=== PATIENT | female | born 1965 | race Caucasian/White ===

== ENCOUNTER 2018-10-17 16:28 | Inpatient (IN) ==
--- NOTE | 2018-10-17 18:02 | Diag Imaging Result Doc PS360 ---
EXAM: KUB ABDOMEN INDICATION: constipation pain TECHNIQUE: One view COMPARISON: 07/25/2018 FINDINGS: There are multiple gas-distended loops of small bowel throughout the abdomen. Small bowel obstruction cannot be excluded. No definite large volume free abdominal gas can be identified given the limitations of a supine radiograph. There is no evidence of organomegaly. IMPRESSION: Gas-distended loops of small bowel as described. Small bowel obstruction cannot be excluded. Electronically signed by Frandy Gallegos 10/17/2018 6:01 PM
[2018-10-17] MEDS ORDERED: SODIUM CHLORIDE 0.9% INJ ONE (18:15)
[2018-10-17] MEDS ORDERED: ZOFRAN IV ONE (18:15)
[2018-10-17] MEDS ORDERED: PEPCID IV ONE (18:15)
[2018-10-17] MEDS ORDERED: NS 1,000 ML IV ONE (18:15)
[2018-10-17] MEDS ORDERED: DILAUDID IV ONE ×2 (18:15→21:21)
--- NOTE | 2018-10-17 18:28 | PROVIDER DOCUMENTATION ---
HPI-Abdominal Pain/GI Problem - General Chief Complaint: Constipation Stated Complaint: POST OP COMPLAINT Time Seen by Provider: 10/17/18 18:15 Source: patient Allergies/Adverse Reactions: Patient Allergies Allergy/AdvReac Type Severity Reaction Status Date / Time No Known Allergies Allergy Verified 07/21/18 10:30 Home Medications: Home Medication List Medication Instructions Recorded Confirmed Last Taken Type NK [No Home Medications] 10/17/18 10/17/18 Unknown History - History of Present Illness-ABD Nature of Presenting Problems: History of SBO a few months ago due to adhesions, c/o 2-3 day history of increasing, severe, crampy abdominal pain and vomit with vomit becoming feculent this evening. No flatus in several days. No fever. States this feels the same as when she had surgery for adhesionolysis. Abdominal Pain Onset Location: reports: generalized abdomen Pain Radiation: reports: no radiation Quality of Pain: reports: cramping, stabbing Severity in ED: reports: severe Onset/Duration: reports: 3 days ago Timing: reports: still present, constant, getting worse Activities at Onset: reports: none Exposure to sick contacts?: No Modifying Factors: improves with: immobilization, vomiting. worse with: movement, palpation Associated Symptoms: reports: constipation, nausea, vomiting Last BM: 3 days ago Dark Stools Present?: reports: none noticed Rectal Pain: reports: none Emesis Description: reports: other (feculent) Bruising or Bleeding Gums?: No Similar Symptoms Previously?: Yes (SBO (can't remember name of trista)) Recently seen or treated by another doctor?: No Review of Systems - Adult - REVIEW OF SYSTEMS - ADULT Constitutional: reports: no symptoms reported Eyes: reports: no symptoms reported Ears, Nose, Mouth & Throat: reports: no symptoms reported Cardiovascular: reports: no symptoms reported Respiratory: reports: no symptoms reported Gastrointestinal: reports: see HPI, abdominal pain, constipation, nausea, poor appetite, vomiting. denies: hematemesis, diarrhea, difficulty swallowing, frequent heartburn, rectal bleeding Genitourinary: reports: no symptoms reported Musculoskeletal: reports: no symptoms reported Integumentary: reports: no symptoms reported Neurological: reports: no symptoms reported Psychiatric: reports: no symptoms reported Endocrine: reports: no symptoms reported Hematologic/Lymphatic: reports: no symptoms reported Allergic/Immunologic: reports: no symptoms reported All Other Systems: Reviewed and Negative Past History - Adult - PAST MEDICAL HISTORY-ADULT Review of Records: reports: Old Records Reviewed, Nursing Assessment Review, Medications Reviewed, Social history reviewed & non-contributory. Major Childhood Illnesses: reports: denies history Cardiovascular: reports: denies history Respiratory: reports: denies history Gastrointestinal: reports: obstruction Obstetrical/Gynecological: reports: denies history Genitourinary: reports: denies history Musculoskeletal: reports: chronic pain, neck/back injury Neurological: reports: CVA (multi brain bleeds), headaches/migraines Endocrine/Immune: reports: denies history Other Conditions: reports: denies history - PRIOR SURGERIES/PROCEDURES Surgical/Procedure History: reports: EGD, bowel surgery, back/neck - IMMUNIZATION STATUS Childhood Immunizations: See Nurse Assessment Flu Vaccine: See Nurse Assessment - FAMILY HISTORY Family History: reviewed, not pertinent - SOCIAL HISTORY Smoking: cigarettes, less than 1 pack/day Provider spent 3-5 mins advising pt. on dangers of tobacco.: Discussed manners to quit use, and f/u contacts for add'l counseling. Substance Use: none/never Alcohol Use Frequency: occasionally Living Situation: family Physical Exam-General - PHYSICAL EXAM-ADULT Initial Vital Signs Reviewed: Yes (Tachycardic, otherwise stable) - CONSTITUTIONAL General Appearance: alert, mild distress, cachetic, thin, anxious, other ( holdiong vomit bag) - EYES Eyes: PERRL/EOMI, pink conjunctivae - HEAD, EARS, NOSE, MOUTH & THROAT HENMT: normocephalic/atraumatic, normal ENT inspection, TMs normal, pharynx normal, other (dry mucous membranes) - NECK Neck: non-tender, full range of motion, supple - RESPIRATORY Respiratory: chest non-tender, lungs clear, normal breath sounds, no pleuratic chest pain, no respiratory distress, no accessory muscle use - CARDIOVASCULAR Cardiovascular: normal peripheral pulses, regular rate, rhythm, no edema, no gallop, no JVD, no murmur, tachycardia - GASTROINTESTINAL (ABDOMEN) Abdominal Exam: no organomegaly, no pulsatile mass, abnormal bowel sounds ( hyperactive), distended, guarding, rebound, tenderness - MUSCULOSKELETAL Back Exam: normal inspection, no CVA tenderness, no vertebral tenderness Extremity: normal range of motion, non-tender, normal gait, normal inspection - SKIN Integumentary: normal color, normal turgor, warm/dry Progress - PLAN OF CARE/RESULTS Progress/Plan/Lab Results: Vital Signs - 8 hr 10/17/18 17:08 Temperature 98.3 F Pulse Rate 113 H Respiratory Rate 18 Blood Pressure 109/77 O2 Sat by Pulse Oximetry 99 Orders Category Date Time Status Lezama Cath Insertion ORDERED Care 10/17/18 18:13 Active NG/OG/Feeding Tube Insertion ORDERED Care 10/17/18 18:[address] ABD/PELVIS W/IV CONT ONLY [CT] Stat Exams 10/17/18 18:15 Ordered KUB ABDOMEN [RAD] Stat Exams 10/17/18 17:16 Completed BLOOD CULTURE [BLDCUL] Stat Lab 10/17/18 18:14 Ordered CBC WITH ELECTRONIC DIFF [HEME] Stat Lab 10/17/18 18:14 Uncollected COMPREHENSIVE METABOLIC PANEL [CHEM] Stat Lab 10/17/18 18:14 Uncollected LACTATE, PLASMA [CHEM] Stat Lab 10/17/18 18:14 Uncollected MAGNESIUM [CHEM] Stat Lab 10/17/18 18:14 Uncollected PROTIME WITH INR [COAG] Stat Lab 10/17/18 18:14 Uncollected TROPONIN T Stat Lab 10/17/18 18:14 Uncollected TYPE & SCREEN [BBK] Stat Lab 10/17/18 18:[address] W/POSS RFLX CULT [URINALYSIS] Stat Lab 10/17/18 18:14 Uncollected 0.9% Sodium Chloride Inj [Ns] 1,000 ml Med 10/17/18 18:15 Active IV 999 mls/hr Famotidine [Pepcid] Med 10/17/18 18:15 Discontinued 20 mg IV NOW ONE Hydromorphone [Dilaudid] Med 10/17/18 18:15 Discontinued 0.5 mg IV NOW ONE Ondansetron [Zofran] Med 10/17/18 18:15 Discontinued 4 mg IV NOW ONE Sodium Chloride 0.9% Med 10/17/18 18:15 Discontinued 5 - 10 ml INJ NOW ONE EKG [EKG] Stat Ther 10/17/18 18:14 Ordered Pt signed out to me by Dr. Tsai pending CT, pt has SBO, pt seen by Dr. Callaway, will admit to hospitalist and surgery to consult, NG placed Result Diagrams: 10/17/18 18:30 10/17/18 18:30 - EKG 1 Time of EKG reading by physician:: 18:46 EKG Read and Signed by:: Frantz Tsai EKG Interpretation (*Must complete 3 of following elements*): Abnormal Rate: 79 Rhythm: NSR with arryhthmia QRS: normal MA Interval: normal ST Wave: non-specific ST changes - CHANGE OF SHIFT REPORT (ED Provider) Report Given and Care Transferred to:: Dr. Pires Time of Transfer: 19:00 Items Pending: Labs, CT/MRI Results, Physician Consult/Arrival (surgeon) Departure - Departure Date of Disposition Decision: 10/17/18 Time of Disposition Decision: 21:23 DIAGNOSIS: SBO (small bowel obstruction) Disposition: [facility] 02 Certified Medical Emergency: Emergent Condition: Stable Referrals and Follow-Ups: None,PCP [Primary Care Provider] - Work Excuses: Return to School/Parent Work - Critical Care Note This patient required my direct & personal management of CC.: No Attestation - Physician/ ROCIO Attestation Patient care was provided by Advanced Practice Provider:: No The physician spent face to face time with patient:: Yes Advanced Practice Provider documentation review:: Supervising physician onsite and consulted in the evaluation and care of this patient. The physician did have a face to face encounter with the patient.
[2018-10-17] MEDS ORDERED: ZOSYN 3.375 GM in NS 50 ML IV ONE (18:30)
[2018-10-17 18:50] LABS: BASO# 0.01 X1000 (0.0-0.2); BASO% 0.2 % (0.0-0.8); EOS# 0.03 X1000 (0.0-0.7); EOS% 0.5 % (0.0-10.0); HEMATOCRIT 43.2 % (37.0-47.0); HEMOGLOBIN 14.6 g/dL (12.0-16.0); IMM GRAN# 0.01 X1000 (0.0-0.04); IMM GRAN% 0.2 % (0.0-0.5); LYMPH# 1.02 X1000 (1.2-3.4); MCH 27.8 PG (27-31); MCHC 33.8 g/dL (33-37); MCV 82.1 FL (81-99); MONO# 0.86 X1000 (0.11-0.59); MONO% 15.2 % (1.7-9.3); MPV 9.7 FL (7.4-10.4); NEUT# 3.73 X1000 (1.4-6.5); NEUT% 65.9 % (42.2-75.2); PLT 312 X1000 (130-400); RBC 5.26 XMIL (4.2-5.4); RDW 14.1 % (11.5-14.5); WBC 5.66 X1000 (4.8-10.8)
[2018-10-17 19:01] LABS: INR 0.89; PROTIME 12.5 Seconds (11.0-16.0)
[2018-10-17 19:12] LABS: AGAP 17; ALKALINE PHOSPHATASE 102 U/L (32-104); BUN 18 mg/dL (8-22); CALCIUM 9.5 mg/dL (8.8-10.2); CHLORIDE 93 mmol/L (98-107); COSMO 283; CREATININE 0.9 mg/dL (0.5-0.9); ESTIMATED GFR > 60; GLUCOSE 99 mg/dL (70-104); GOT 23 U/L (10-30); GPT 22 U/L (10-36); MAGNESIUM 2.1 mg/dL (1.5-2.7); POTASSIUM 3.5 mmol/L (3.5-5.1); SODIUM 141 mmol/L (136-145); TCO2 31 mmol/L (25-35); TOTAL PROTEIN 7.1 g/dL (6.3-8.3)
--- NOTE | 2018-10-17 20:10 | Diag Imaging Result Doc PS360 ---
EXAM: CT ABD/PELVIS W/IV CONT ONLY INDICATION: SBO TECHNIQUE: This exam was performed using automated exposure control, adjustment of mA or kV according to patient size, and/or use of iterative reconstruction technique. COMPARISON: 07/21/2018 FINDINGS: There are a couple of tiny hepatic hypodensities that probably represent miniscule cysts, stable. The liver is unremarkable, otherwise. The gallbladder, spleen, pancreas, adrenal glands, and kidneys are essentially unremarkable. There is a Lezama catheter in the urinary bladder and the bladder is nondistended. It is unremarkable, otherwise. The reproductive tract is grossly unremarkable as imaged. There are multiple markedly distended loops of small bowel containing air-fluid levels. The distal small bowel is collapsed. This is consistent with a high-grade small bowel obstruction. The exact transition point is not clearly identified but is probably in the right lower quadrant. The remainder of the GI tract is grossly unremarkable. There is a small amount of free abdominal fluid layering in the pelvis. No free abdominal gas is identified. IMPRESSION: High-grade small bowel obstruction as detailed above. Electronically signed by Frandy Gallegos 10/17/2018 8:08 PM
[2018-10-17 21:00] LABS: BILIRUBIN URINE NEGATIVE (NEGATIVE); BLOOD URINE NEGATIVE (NEGATIVE); CLARITY CLEAR (CLEAR); COLOR YELLOW; GLUCOSE URINE NEGATIVE (NEGATIVE); KETONE URINE 3+(Large) mg/dL (NEGATIVE); LEUKOCYTES URINE NEGATIVE (NEGATIVE); NITRITE URINE NEGATIVE (NEGATIVE); PROTEIN URINE 1+(30 mg/dL) mg/dL (NEGATIVE); UROBILINOGEN URINE 1 mg/dL
[2018-10-17 21:01] LABS: URINE BACTERIA 1+ /HFP; URINE CAST NONE SEEN /LPF; URINE CRYSTAL NONE SEEN /HPF; URINE EPITHELIAL CELLS <10 /HPF (<10); URINE SOURCE CATH; URINE WBC <10 /HPF (<10); URINE YEAST NONE SEEN /HPF
--- NOTE | 2018-10-18 00:26 | EKG Report ---
Test Performed on : 10/17/2018 6:37:49 PM Test Reason : vomiting Blood Pressure : / mmHG Vent. Rate : 079 BPM Atrial Rate : 079 BPM P-R Int : 118 ms QRS Dur : 076 ms QT Int : 380 ms P-R-T Axes : 000 062 078 degrees QTc Int : 435 ms Normal sinus rhythm. with sinus arrhythmia. Nonspecific ST and T wave abnormality Abnormal ECG When compared with ECG of 15-FEB-2016 05:32, Nonspecific T wave abnormality now evident in Lateral leads Unconfirmed Result
--- NOTE | 2018-10-18 01:26 | GENERAL SURGERY CONSULTATION ---
DATE: 10/17/2018 HPI: A 52-year-old female who had a exploratory laparotomy by Dr. Braun back in July. She was found to have occult appendicitis at that time and underwent appendectomy. She recovered said she had not felt great really since that surgery but over the last several days she has developed abdominal distention, vomiting, decrease in her bowel function and presented to [place] where CT scan showed a bowel obstruction. NG tube was placed along with Lezama catheter. MEDICAL HISTORY: 1. History of small bowel obstruction. 2. Polysubstance dependence. 3. Nicotine dependence. 4. Renal insufficiency. SURGICAL HISTORY: Exploratory laparotomy, appendectomy. SOCIAL HISTORY: Apparent history of drugs, tobacco. FAMILY HISTORY: Reviewed and noncontributory. REVIEW OF SYSTEMS: Ten point negative. PHYSICAL EXAM: Temperature is 98.3 degrees, pulse is 60, blood pressure 137/121, oxygen saturation 99%.General: She is alert, no acute distress. HEENT: Is nasogastric tube place. No cervical mass. Cardiovascular: Normal rate. Pulmonary: No increased work of breathing. Abdomen: Soft, mildly distended. No tenderness, no peritonitis . Integument: Warm, dry. Psychiatric: Appropriate affect. Neurologic: No gross deficits. Musculoskeletal: She is quite cachectic . Lymphatic: No inguinal adenopathy. LAB: White count 5, hematocrit 43, platelets 312,000, creatinine is 0.9, mild elevation of bilirubin, otherwise AST, ALT, alkaline phosphatase normal and troponin is normal, lipase normal. Urinalysis has 3+ ketones. CT scan was reviewed shows bowel obstruction with transition point distal small bowel. ASSESSMENT AND PLAN: 52-year-old female with a small-bowel obstruction. I do not see any evidence perforation, she has no peritonitis on exam, she has got nasogastric tube in place. Will continue nasogastric decompression admitted her to the hospitalist as an observe and will engage Dr. Braun tomorrow. cc: Desmond Callaway MD
[2018-10-18] MEDS: NS 1,000 ML IV SCH ×2 (02:22→13:32)
[2018-10-18] MEDS: DILAUDID IV PRN ×6 (02:22→21:10)
[2018-10-18] MEDS ORDERED: FLU VACCINE IM ONE (02:26)
[2018-10-18] MEDS ORDERED: PNEUMOVAX 23 IM ONE (02:27)
[2018-10-18 04:21] LABS: UR BARBITUATES QUAL NONE DETECTED (NONE DETECT); UR BENZODIAZEPIN QUAL NONE DETECTED (NONE DETECT); UR COCAINE QUAL PRESUMPTIVE POSITIVE (NONE DETECT); UR METHADONE QUAL NONE DETECTED (NONE DETECT); UR METHAMPHETAMINE QUAL PRESUMPTIVE POSITIVE (NONE DETECT); UR OPIATES QUAL PRESUMPTIVE POSITIVE (NONE DETECT); UR OXYCODONE QUAL NONE DETECTED (NONE DETECT)
[2018-10-18 04:22] LABS: UR CANNABINOIDS QUAL NONE DETECTED (NONE DETECT); UR PCP QUAL NONE DETECTED (NONE DETECT); UR PROPOXYPHENE QUAL NONE DETECTED (NONE DETECT); UR TCA QUAL NONE DETECTED (NONE DETECT)
[2018-10-18 04:27] LABS: UR AMPHETAMINES QUAL PRESUMPTIVE POSITIVE (NONE DETECT)
[2018-10-18] MEDS: NICODERM PATCH TD SCH (06:03)
[2018-10-18] MEDS: PROTONIX IV SCH (06:03)
--- NOTE | 2018-10-18 06:52 | Diag Imaging Result Doc PS360 ---
CHEST-1 VIEW - 10/18/2018 INDICATION: Cough, poss. surgical patient COMPARISON: 07/22/2018 FINDINGS: There is a nasogastric tube with the tip in the distal esophagus. Recommend advancing by about 12 cm. The lungs are clear. Heart size is normal. No pneumothorax or pleural effusion. IMPRESSION: Nasogastric tube with tip in the distal esophagus. Recommend advancing by about 12 cm. Electronically signed by Ron Salomon 10/18/2018 6:49 AM
--- NOTE | 2018-10-18 07:14 | GENERAL SURGERY PROGRESS NOTE ---
DATE: 10/18/2018 SUBJECTIVE: She is still having some colicky pains. No fevers. No tachycardia. OBJECTIVE: Blood pressure 119/71. General: She has an NG tube in place with minimal output. Abdomen is less distended and soft. There is palpable peristalsis. Cardiovascular: Normal rate. No new labs yet this morning. ASSESSMENT AND PLAN: A 52 old female with bowel obstruction. Her UDS was positive for amphetamines, cocaine, and opiates. We will continue nasogastric tube decompression. We will encourage her to be out of bed. She will need IV hydration, electrolyte repletion with goal potassium greater than 4, magnesium greater than 2. We will continue to follow along. cc: Desmond Callaway MD
[2018-10-18 07:21] LABS: BASO# 0.05 X1000 (0.0-0.2); EOS# 0.07 X1000 (0.0-0.7); EOS% 1.4 % (0.0-10.0); HEMATOCRIT 42.3 % (37.0-47.0); HEMOGLOBIN 13.7 g/dL (12.0-16.0); LYMPH# 1.05 X1000 (1.2-3.4); LYMPH% 21.3 % (20.5-51.1); MCH 27.8 PG (27-31); MCHC 32.4 g/dL (33-37); MONO# 0.94 X1000 (0.11-0.59); MPV 10.4 FL (7.4-10.4); NEUT# 2.83 X1000 (1.4-6.5); NEUT% 57.3 % (42.2-75.2); PLT 293 X1000 (130-400); RBC 4.92 XMIL (4.2-5.4); RDW 14.4 % (11.5-14.5); WBC 4.94 X1000 (4.8-10.8)
[2018-10-18 07:46] LABS: AGAP 18; BUN 18 mg/dL (8-22); CALCIUM 8.3 mg/dL (8.8-10.2); CHLORIDE 94 mmol/L (98-107); COSMO 277; CREATININE 0.8 mg/dL (0.5-0.9); ESTIMATED GFR > 60; GLUCOSE 86 mg/dL (70-104); POTASSIUM 3.4 mmol/L (3.5-5.1); SODIUM 138 mmol/L (136-145); TCO2 26 mmol/L (25-35)
--- NOTE | 2018-10-18 08:55 | HISTORY AND PHYSICAL ---
PRIMARY CARE PROVIDER: None. DATE AND TIME: 10/18/2018 at 0015. CHIEF COMPLAINT: Abdominal pain. HISTORY OF PRESENT ILLNESS: Ms. Berrios is a 52-year-old, female, with a history of anxiety, polysubstance dependence, nicotine dependence, degenerative disc disease, and recent partial small bowel obstruction for which she did have to undergo exploratory laparotomy with lysis of adhesions and open appendectomy on 07/22/[address] Jennifer Braun. Patient states that she does have chronic problems with constipation as well. She states that she has been having crampy abdominal pain that is just superior to her umbilicus for approximately 2 -3 days. She has reported some nausea and vomiting on Wednesday and Wednesday, though she states she has been able to keep some fluids down. The patient states that she rarely has a good bowel movement and is chronically constipated, though has not had a bowel movement in several days. She also states that she has not passed gas in a few days as well. She does report a chronic productive cough with clear sputum. She does report some chronic sinus congestion, drainage and allergy symptoms although she states that her cough or her sinus symptoms have not worsened. She also reports that she has had some intermittent fever, body aches and chills - though since her arrival the patient has been afebrile. She denies any dysuria or urinary frequency. She denies any pain, numbness, tingling or swelling in extremities. Upon evaluation in the ER, the patient's abdominal x-ray did show gas-distended loops of small bowel as described. A small bowel obstruction could not be excluded. They did perform other studies with a CT of abdomen and pelvis without any contrast, which did show a high-grade small bowel obstruction. Please see CT report for further details. Dr. Desmond Callaway was on-call for surgery. He was notified and according to ER notes from [facility] that Dr. Callaway had seen the patient. At this time, the patient will be admitted for further treatment and evaluation of her small bowel obstruction. REVIEW OF SYSTEMS: A 14 point review of systems was conducted with the patient and all were negative except for pertinent positives mentioned above in HPI. PAST MEDICAL HISTORY: 1. Anxiety. 2. Nicotine dependence. 3. Degenerative disc disease. 4. Chronic constipation. 5. History of polysubstance abuse with the patient reporting that she currently does still use crack cocaine, methamphetamines and marijuana. 6. Nicotine dependence. 7. History of partial small bowel obstruction in July 2018. PAST SURGICAL HISTORY: 1. Lumbar spine fusion. 2. Cervical spine surgery. 3. Tubal ligation. 4. Left foot surgery. 5. Status post exploratory laparotomy with lysis of adhesions and open appendectomy in July [address] Braun. SOCIAL HISTORY: The patient at this time does state that she still smokes approximately half- pack of cigarettes per day. She has smoked since the age of 11 and did previously smoke two packs per day. She does report occasional alcohol use, though no heavy everyday use. The patient also did request to have [employer] consult so that she could possibly obtain disability. FAMILY HISTORY: Positive for her mother having history of breast cancer and heart failure. She states she is living. She is [id number] and in a correction. Her father approximately [id number] secondary to prostate cancer. She does have two sisters who have , though she states she is unsure as to the reason rhythm. She did report that one of them was an alcoholic. ALLERGIES: The patient has no known allergies. HOME MEDICATIONS: The patient has no home medications. DIAGNOSTIC DATA/LABORATORY RESULTS: 1. White blood cell count of 5.66, hemoglobin 14.6, hematocrit 43.2, platelet count 312,000. 2. PT 12.5, INR 0.89. 3. Sodium 141, potassium 4.5, chloride 93, serum bicarb 31, BUN 18, creatinine 0.9, glucose 99, calcium 9.5. Magnesium 2.1. 4. Total bilirubin is 1.1, AST 23, ALT 22, alkaline phosphatase 102. 5. Troponin is less than 0.01. Plasma lactate is 1.2. 6. Urinalysis was obtained via catheter and was positive for 1+ protein and 3+ ketones. It was negative for blood, nitrites, bacteria or white blood cells. 7. Urine drug screen was positive for opiates, though the patient has received Dilaudid since being in the ER. She was also positive for amphetamines, methamphetamines and cocaine. 8. Abdominal x-ray did show gas within the loops of small bowel. 9. CT of abdomen and pelvis with IV contrast was performed which did show a high -grade small bowel obstruction. Please see CT report for further details. PHYSICAL EXAM: VITAL SIGNS: Temperature 98.4 degrees Fahrenheit, heart rate 85, respirations 20, blood pressure 125/75. Oxygen saturation is 98% on room air. GENERAL: Ms. Berrios is a somewhat emaciated appearing, 52-year-old female, resting on inpatient bed. She was in no acute distress. She was awake, alert, and able to answers questions appropriately. HEENT: Head is normocephalic and atraumatic. Pupils are equal, round and reactive to light. Oral mucosa was moist. Oropharynx is clear. NECK: Supple. Trachea is midline. No carotid bruits noted upon auscultation bilaterally. CARDIOVASCULAR: Patient has normal S1, S2. No murmur, rub or gallop appreciated with a regular rate and rhythm. PULMONARY: Patient has symmetrical chest expansion bilaterally. Lung sounds are clear to auscultation in bilateral full muir. ABDOMEN: Soft though does appear to be slightly distended. The patient does have tenderness noted upon palpation in the area just superior to her umbilicus. Bowel sounds were present in all four quadrants were hyperactive. EXTREMITIES: No cyanosis or edema noted. Pulse, motor and sensory were intact in all extremities. Radial pulse and pedal pulses were 2+ bilaterally. INTEGUMENTARY: Patient's skin is pink, warm and dry. NEUROLOGIC: The patient is alert and oriented to person, place and time. There are no focal neurological deficits noted. ASSESSMENT AND PLAN: 1. Small bowel obstruction. For this an NG tube has been placed. The patient will be n.p.o. We will provide IV fluid hydration. We have consulted Dr. Callaway with Surgery. We will await his evaluation and further recommendations for management. 2. Mild fluid volume depletion. We will continue with gentle IV hydration with normal saline at 100 mL/h. 3. Polysubstance abuse. The patient did report that she does occasionally and has recently used crack cocaine, methamphetamines and marijuana. We have counseled the patient on the importance of stopping the abuse of these illicit drugs. She did state verbal understanding. 4. Nicotine dependence. We also counseled the patient for several minutes on the importance of smoking cessation and she does state verbal understanding. I have ordered a nicotine patch. 5. Deep venous thrombosis prophylaxis. She is provided with SCDs given the patient is possibly a surgical patient. The patient has been placed on the Surgical floor with telemetry. She will have vital signs q.6h. We will do strict intake and output. She will be N.P.O. We will repeat a CBC and BMP in the morning. Patient does have a reported productive cough with clear sputum. I did note a wet cough upon my examination and the patient is a long-time smoker. We have ordered a chest x-ray for further evaluation. We will await this result and continue to follow. We have also placed an order for a [employer] consult. The patient reported that she was previously on disability though did lose this and would like assistance with trying to obtain disability again. Patient states previously she has had difficulty with keeping her disability due to she is not able to read and had difficulty understanding and filling out paperwork that was required. Further orders and recommendations pending hospital course, diagnostic studies and physician evaluation. Dictated by NANCY Camp for Maddi Holder MD cc: MD Jennifer Peña MD R. Tyler Harney, MD MTDD
[2018-10-18] MEDS: ZOFRAN IV PRN ×3 (13:34→21:10)
--- NOTE | 2018-10-18 14:11 | EKG Report ---
Test Performed on : 10/18/2018 2:04:28 PM Test Reason : Follow up T wave abnormality Blood Pressure : / mmHG Vent. Rate : 062 BPM Atrial Rate : 062 BPM P-R Int : 118 ms QRS Dur : 074 ms QT Int : 422 ms P-R-T Axes : 064 063 056 degrees QTc Int : 428 ms Sinus rhythm. with premature supraventricular complexes. Nonspecific ST and T wave abnormality Abnormal ECG When compared with ECG of 17-OCT-2018 18:37, (Unconfirmed) premature supraventricular complexes. are now present ST now depressed in Inferior leads Nonspecific T wave abnormality now evident in Anterior leads Confirmed by Chio CARPENTER, Jose C Newell ([id number]) on 10/19/2018 7:04:05 AM
--- NOTE | 2018-10-18 15:36 | PROGRESS NOTE ---
DATE: 10/18/2018 INTERVAL HISTORY: Ms. Berrios was admitted overnight with complaints of small bowel obstruction. She had recent surgery in 2017 of small bowel obstruction requiring exploratory laparotomy, in addition to lysis of adhesions, appendectomy. She continues to have polysubstance abuse overnight. Nasogastric tube was placed. On reviewing input and output, it appears that since then she had about 300 mL of output. SUBJECTIVE: Patient is requesting me to allow her to drink something. I counseled her about need for keeping the NG tube in so that she can decompress her intestine. She appears anxious and weary. Currently the patient has not had any more nausea or vomiting. Her abdominal pain is getting better. I had counseled about not using polysubstances in the future. OBJECTIVE: Vital Signs: Currently temperature 97.9 degrees, pulse 59 per minute, blood pressure 106/63, saturating 97% on room air. General: On physical examination, appeared cachectic, not in distress, appears anxious though. Oral cavity is moist. Respiratory: Air entry bilaterally equal without wheeze, rhonchi, or crackles. Cardiovascular: S1, S2 normal. No murmur, rub, or gallop. Abdomen: Scaphoid. There is a midline scar of laparotomy. There is mild periumbilical tenderness. There is moderate periumbilical tenderness without any guarding or rigidity. Extremities: No lower extremity edema. Neurologic: Alert oriented x3. LABS: Suggestive of no leukocytosis. Stable hemoglobin, hematocrit, and platelet count. Electrolytes suggestive of hypokalemia and hypochloremia. ASSESSMENT AND PLAN: 1. Small bowel obstructions with transition point likely in the right lower quadrant of her abdomen with recent history of small bowel obstruction in July 2018 requiring exploratory laparotomy and lysis of adhesion. Continue nothing by mouth. Nasogastric tube under suction and intravenous fluids for the medical management. Surgery on board. No need of emergent surgery at the moment. 2. Volume depletion on admission. Continue intravenous fluid and electrolyte repletion. 3. Polysubstance abuse. Again, I counseled patient about not using these substances and adverse effects of these substances on her general health. She verbalized understanding. Nicotine and tobacco abuse. Continue nicotine patches. 4. Hypokalemia being repleted. 5. Protein energy malnutrition, likely because of polysubstance use and poor oral intake. Advised the patient about stopping the use and, once she is able to take by mouth, I will consider getting nutrition consult. 6. Chest pain. This is continuous and it has improved since presentation. Electrocardiogram had ST depressions in inferolateral leads. I will follow up echocardiogram to rule out cocaine- induced cardiomyopathy. Her troponins have been negative. 7. Disposition: Patient remains inside the hospital for management of small bowel obstruction. Plan of care was discussed with her. All of her questions have been answered. I will follow up with abdominal x-rays tomorrow. cc: Naseem Castañeda MD
[2018-10-18] MEDS: POTASSIUM CHLORIDE 20 MEQ/SWI 20 MEQ/100 ML IVPB IV SCH ×2 (16:13→18:13)
--- NOTE | 2018-10-18 19:15 | ECHO REPORT ---
ORDER DATE: 10/18/2018 INDICATION: A 52-year-old female with abnormal EKG. M-MODE MEASUREMENTS: Left ventricle end diastole: 4.3. Left ventricle end systole: 2.6. Posterior wall: 0.6. Interventricular septum: 0.6. Left atrium: 2.8. Aortic root: 2.3. SUMMARY OF 2-DIMENSIONAL IMAGIN. Left ventricular function is normal. Ejection fraction is 74%. No wall motion abnormality is noted. 2. The right ventricle is normal. 3. The mitral valve looks normal. Color flow mapping indicates a mild degree of regurgitation. 4. The aortic valve looks normal. Color flow mapping unremarkable. 5. The pulmonic valve looks normal. Color flow mapping unremarkable. 6. Tricuspid valve shows mild degree of regurgitation. 7. Pulmonary pressure is estimated at 35 mmHg. 8. Pulsed wave Doppler of mitral inflow is normal. 9. Tissue Doppler of septal and lateral mitral annulus averages 13 cm. There is no diastolic dysfunction. 10.There is no pericardial effusion, mass, and no thrombus. SUMMARY: This study shows: 1. Hyperdynamic left ventricle with ejection fraction of 74%. 2. Normal diastolic function. 3. Pulmonary pressure of 35 mmHg. 4. No evidence of any significant valvular abnormality. Clinical correlation recommended. cc: MD Naseem Lewis MD
[2018-10-19] MEDS: NS 1,000 ML IV SCH (00:05)
[2018-10-19] MEDS: DILAUDID IV PRN ×7 (00:19→23:21)
[2018-10-19] MEDS: ZOFRAN IV PRN ×5 (04:39→20:11)
[2018-10-19] MEDS: NICODERM PATCH TD SCH (04:40)
[2018-10-19] MEDS: PROTONIX IV SCH (06:07)
[2018-10-19] MEDS: LOVENOX SUBQ SCH (08:10)
[2018-10-19 08:52] LABS: AGAP 20; BUN 18 mg/dL (8-22); CALCIUM 8.5 mg/dL (8.8-10.2); CHLORIDE 99 mmol/L (98-107); COSMO 273; CREATININE 0.8 mg/dL (0.5-0.9); ESTIMATED GFR > 60; GLUCOSE 58 mg/dL (70-104); MAGNESIUM 1.9 mg/dL (1.5-2.7); SODIUM 137 mmol/L (136-145); TCO2 18 mmol/L (25-35)
--- NOTE | 2018-10-19 09:40 | Diag Imaging Result Doc PS360 ---
EXAM: ABDOMEN FLAT/UPRIGHT 10/19/2018 HISTORY: Follow up SBO. TECHNIQUE: Flat and upright abdomen COMMENT: There is an NG tube in the mid thoracic esophagus. There is marked dilatation of small bowel loops in the midabdomen with some apparent thickening of mucosal folds. The latter finding is worse than on 10/17/2018. There is some gas and stool in the ascending colon. The stomach is not distended. IMPRESSION: NG tube in the midesophagus. Small bowel obstruction. Electronically signed by David Wilson 10/19/2018 9:38 AM
[2018-10-19] MEDS ORDERED: HURRICAINE SPRAY TOP ONE (11:15)
--- NOTE | 2018-10-19 12:13 | PROGRESS NOTE ---
DATE: 10/19/2018 INTERVAL HISTORY: She continued to have NG tube. According to the report, she has 400 mL of output in over 24 hours. She continues to complain of abdominal pain. Currently, the patient states that she is feeling that her belly is swollen. Denies any chest pain or shortness of breath. VITALS: Temperature 98.2 degrees, pulse 64, respiratory rate 16, blood pressure 126/76, saturating 95% on room air. PHYSICAL EXAMINATION: General: Appears cachectic, not in distress. Mouth: Oral cavity is moist. Lungs: Air entry bilaterally equal without wheeze, rhonchi, or crackles. NG tube in place. Cardiovascular: S1, S2 normal. No murmur, rub, or gallop. Abdomen: Scaphoid. There is midline scar of laparotomy, appears well healed. Generalized abdominal tenderness especially in the periumbilical and epigastric region with mild guarding without any rigidity. Extremities: No lower extremity edema. Neurologic: Alert and oriented x3. LABS: BMP suggestive of resolution of hypokalemia and appropriate level of potassium, normal kidney function. Glucose is 58, and bicarbonate is 18. ASSESSMENT AND PLAN: 1. Small bowel obstruction with transition point likely in the right lower quadrant with recent history of small bowel obstruction requiring exploratory laparotomy and adhesiolysis with appendectomy in July 2018. Continue nasogastric tube suction for continued small-bowel obstruction. Change intravenous fluids to D5 lactated Ringer's, considering her hypoglycemia and slight metabolic acidosis. Follow up with basic metabolic panel tomorrow. Appreciate Surgery recommendation about further management. 2. Clinical volume depletion on admission. Continue intravenous fluids and electrolyte repletion. 3. Polysubstance abuse. The patient has been counseled about stopping these substances and adverse effects of these substances on her general health, including tobacco abuse. Continue nicotine patches for tobacco abuse. 4. Hypokalemia, resolved. 5. Protein energy malnutrition, likely because of polysubstance use and poor oral intake. I will start the patient on diet once small bowel obstruction resolves. 6. Chest pain on admission now resolved. Electrocardiogram has ST depressions in inferolateral leads. However, echocardiogram has hyperdynamic left ventricle with normal ejection fraction. Her troponins have been negative. 7. Disposition. Patient remains inside the hospital for continued small-bowel obstruction as evidenced on abdominal x-ray today. I had discussed her care with her and all of her questions have been answered. The patient did not want me to inform her children about her hospital course and provide details about her medical condition including polysubstance use. She told me that she would call them and inform them by herself. cc: Naseem Castañeda MD
[2018-10-19] MEDS: D5 LR 1,000 ML IV SCH ×2 (16:07→16:35)
--- NOTE | 2018-10-19 21:31 | GENERAL SURGERY PROGRESS NOTE ---
DATE: 10/19/2018 SUBJECTIVE: She is doing well. No fevers. No tachycardia. OBJECTIVE: Vital signs: Blood pressure 126/75. Gastrointestinal: She has not had return of bowel function, and her NG tube output remains a moderate amount. On exam, her abdomen is soft, less distended, nontender. LABORATORY DATA: Potassium is 4, creatinine is 0.8. Magnesium is 1.9. ASSESSMENT AND PLAN: This is a 52-year-old female with bowel obstruction. We will continue current nasogastric tube decompression. When she has return of bowel function, we will advance her diet. Would continue IV hydration and electrolyte repletion. cc: Desmond Callaway MD
[2018-10-20] MEDS: ZOFRAN IV PRN ×5 (03:27→20:59)
[2018-10-20] MEDS: DILAUDID IV PRN ×5 (03:27→20:59)
[2018-10-20] MEDS: NICODERM PATCH TD SCH (03:27)
[2018-10-20] MEDS: PROTONIX IV SCH (06:49)
[2018-10-20 07:47] LABS: AGAP 13; BUN 9 mg/dL (8-22); CALCIUM 8.1 mg/dL (8.8-10.2); CHLORIDE 100 mmol/L (98-107); COSMO 272; CREATININE 0.7 mg/dL (0.5-0.9); ESTIMATED GFR > 60; GLUCOSE 96 mg/dL (70-104); MAGNESIUM 1.5 mg/dL (1.5-2.7); POTASSIUM 3.5 mmol/L (3.5-5.1); SODIUM 137 mmol/L (136-145); TCO2 24 mmol/L (25-35)
--- NOTE | 2018-10-20 07:52 | Diag Imaging Result Doc PS360 ---
EXAM: ABDOMEN FLAT/UPRIGHT INDICATION: pain TECHNIQUE: 2 views COMPARISON: 10/19/2018 FINDINGS: There are gas-distended loops of small bowel like the previous study. The distention appears slightly worse than the previous study, however. No large volume free abdominal gas is identified. The abdomen is stable otherwise. IMPRESSION: Slight worsening of gaseous distention of small bowel. Electronically signed by Frandy Gallegos 10/20/2018 7:49 AM
[2018-10-20] MEDS: LOVENOX SUBQ SCH (08:05)
[2018-10-20] MEDS ORDERED: CHLORASEPTIC SPRAY MT PRN (08:30)
[2018-10-20] MEDS ORDERED: SODIUM PHOSPHATE 40 MEQ in NS 250 ML IV ONE (11:49)
--- NOTE | 2018-10-20 18:24 | Diag Imaging Result Doc PS360 ---
EXAM: CHEST-PORTABLE HISTORY: ng tube placement TECHNIQUE: Chest single view COMPARISON: 10/18/2018 FINDINGS: The lungs are well expanded. The heart is not enlarged. The vessels are not distended. There are no infiltrates. No effusion identified. There is a nasogastric tube overlying the esophagus and is coiled in the stomach IMPRESSION: Nasogastric tube is coiled in the stomach. Electronically signed by David Banuelos 10/20/2018 6:22 PM
--- NOTE | 2018-10-20 18:31 | GENERAL SURGERY PROGRESS NOTE ---
DATE: 10/20/2018 SUBJECTIVE: Still no flatus. No pain. NG tube output has been minimal. She is drinking quite a lot of liquids [*] around the NG tube. We discussed this. OBJECTIVE: Vital Signs: No fevers. No tachycardia. Blood pressure 131/71. General: She is alert. Cardiovascular: Normal rate. Pulmonary: No increased work of breathing. Abdomen: Soft, nondistended, nontender. LABORATORY: Potassium low at 3.5. Magnesium is low at 1.5. ASSESSMENT AND PLAN: This is a 52-year-old female with bowel obstruction. NG tube output is not really much. She is not having return of bowel function. We will give a Dulcolax suppository. She needs optimization of her electrolytes. She may ultimately require surgical exploration, but we will continue NG tube decompression. cc: Desmond Callaway MD
[2018-10-20] MEDS: D5 LR 1,000 ML IV SCH (18:42)
[2018-10-20] MEDS ORDERED: DULCOLAX PR ONE (19:06)
--- NOTE | 2018-10-20 19:39 | PROGRESS NOTE ---
DATE: 10/20/2018 SUBJECTIVE: The patient has no focal complaints. OBJECTIVE: Vital Signs: Blood pressure is 142/76, heart rate of 89, respiratory 14, temperature 99.1, 98% on room air. Cardiovascular: Regular rate and rhythm. Pulmonary: Bilateral breath sounds. Clear to auscultation. Gastrointestinal: Soft, nontender, nondistended. Bowel sounds were not positive. She does not have severe tenderness, but definitely absent bowel sounds. LABORATORY DATA: White count is not present. Basic was normal. Phos was 2.1. PROBLEM LIST: 1. Small bowel obstruction. Continue NG tube, n.p.o., IV fluids and Surgery is following. Continue to monitor. 2. History of polysubstance abuse, aware of diagnosis. We will continue to monitor closely. 3. Hypophosphatemia. We will supplement and follow. 4. Disposition: Pending resolution of her small bowel obstruction. She had surgery done a month ago. I will continue to monitor for improvement. cc: Gibran Gonzalez MD
[2018-10-21] MEDS: DILAUDID IV PRN ×7 (01:24→23:01)
[2018-10-21] MEDS: PROTONIX IV SCH ×2 (04:34→06:25)
[2018-10-21] MEDS: SODIUM CHLORIDE 0.9% INJ SCH (04:34)
[2018-10-21] MEDS: ZOFRAN IV PRN ×4 (04:35→19:56)
[2018-10-21] MEDS: NICODERM PATCH TD SCH (04:35)
[2018-10-21 07:12] LABS: BASO# 0.01 X1000 (0.0-0.2); BASO% 0.2 % (0.0-0.8); EOS# 0.03 X1000 (0.0-0.7); EOS% 0.7 % (0.0-10.0); HEMATOCRIT 36.7 % (37.0-47.0); LYMPH# 0.76 X1000 (1.2-3.4); LYMPH% 17.1 % (20.5-51.1); MCH 27.5 PG (27-31); MCHC 32.7 g/dL (33-37); MONO# 0.53 X1000 (0.11-0.59); MONO% 11.9 % (1.7-9.3); MPV 9.4 FL (7.4-10.4); NEUT# 3.12 X1000 (1.4-6.5); NEUT% 70.1 % (42.2-75.2); PLT 229 X1000 (130-400); RBC 4.37 XMIL (4.2-5.4); RDW 13.6 % (11.5-14.5); WBC 4.45 X1000 (4.8-10.8)
[2018-10-21 07:45] LABS: AGAP 11; BUN 5 mg/dL (8-22); CALCIUM 8.4 mg/dL (8.8-10.2); CHLORIDE 95 mmol/L (98-107); COSMO 267; CREATININE 0.5 mg/dL (0.5-0.9); ESTIMATED GFR > 60; GLUCOSE 98 mg/dL (70-104); MAGNESIUM 1.6 mg/dL (1.5-2.7); POTASSIUM 2.9 mmol/L (3.5-5.1); SODIUM 135 mmol/L (136-145); TCO2 29 mmol/L (25-35)
[2018-10-21] MEDS: LOVENOX SUBQ SCH (09:24)
[2018-10-21] MEDS ORDERED: POTASSIUM CHLORIDE 40 MEQ/SWI 40 MEQ/100 ML IVPB IV ONE (12:01)
[2018-10-21] MEDS: POTASSIUM CHLORIDE IV SCH (13:55)
[2018-10-21] MEDS: D5 LR IV SCH (13:55)
--- NOTE | 2018-10-21 14:15 | GENERAL SURGERY PROGRESS NOTE ---
DATE: 10/21/2018 SUBJECTIVE: Denies bowel function. No flatus. No fevers. No tachycardia. OBJECTIVE: Vital signs: Blood pressure 116/70. General: She is alert. NG tube is in place with bilious output. Abdomen: Soft, less distended, nontender. LABORATORY DATA: White count is 5, hematocrit is 36. Her potassium is down to 2.9. Magnesium 1.6. ASSESSMENT AND PLAN: A 52-year-old female with a bowel obstruction, a history of multidrug abuse, has been slow to resolve this. We need to aggressively replete her electrolytes. Could be potentially an ileus type picture, and we will follow her along. I suspect that with no improvement over the weekend, she may ultimately require surgical exploration. Currently, her exam is benign. We will continue NG tube decompression. cc: Desmond Callaway MD
[2018-10-21] MEDS: POTASSIUM CHLORIDE 20 MEQ/SWI 20 MEQ/100 ML IVPB IV SCH ×2 (14:20→18:31)
[2018-10-21] MEDS ORDERED: DULCOLAX PR ONE (15:13)
--- NOTE | 2018-10-21 18:58 | PROGRESS NOTE ---
DATE: 10/21/2018 SUBJECTIVE: The patient is feeling better. She has had some bowel movements after a suppository. OBJECTIVE: Vital Signs: Blood pressure 148/77, heart rate 82, temperature of 97.9 degrees, respiratory rate 16. Cardiovascular: Regular rate and rhythm. Pulmonary: Bilateral breath sounds. Clear to auscultation. Gastrointestinal: Abdomen soft, nontender, nondistended. Bowel sounds are positive. LABORATORY DATA: White count is 4, hemoglobin and hematocrit 12 and 36, platelets 229, potassium 2.9. PROBLEM LIST: 1. Small-bowel obstruction. We will continue to follow closely. We will continue to follow. Dr. Callaway is surgical consult. Fortunately, I think it is resolving because now she has bowel movements and bowel sounds. So hopefully we can get the NG tube out soon. However, we are going to continue current plan. 2. Polysubstance abuse. She had methamphetamine in her urine and amphetamine, so that is obviously not something that was a prescription medication. I have not discussed with her about that. 3. Hypokalemia, which is still present. We will continue treatment in the form of supplementation and follow. 4. Fluid electrolytes. Nutrition as described. We will see how she does. Repeat plain films tomorrow and monitor. cc: Gibran Gonzalez MD
[2018-10-22] MEDS: DILAUDID IV PRN ×7 (02:12→20:16)
[2018-10-22] MEDS: D5 LR IV SCH ×2 (04:12→15:58)
[2018-10-22] MEDS: POTASSIUM CHLORIDE IV SCH ×2 (04:12→15:58)
[2018-10-22] MEDS: NICODERM PATCH TD SCH (05:30)
[2018-10-22] MEDS: PROTONIX IV SCH (05:30)
[2018-10-22 06:35] LABS: BASO# 0.01 X1000 (0.0-0.2); BASO% 0.2 % (0.0-0.8); EOS# 0.03 X1000 (0.0-0.7); EOS% 0.6 % (0.0-10.0); HEMATOCRIT 38.3 % (37.0-47.0); HEMOGLOBIN 12.7 g/dL (12.0-16.0); LYMPH# 0.59 X1000 (1.2-3.4); LYMPH% 11.7 % (20.5-51.1); MCH 27.8 PG (27-31); MCHC 33.2 g/dL (33-37); MCV 83.8 FL (81-99); MONO# 0.72 X1000 (0.11-0.59); MONO% 14.2 % (1.7-9.3); MPV 9.4 FL (7.4-10.4); NEUT# 3.71 X1000 (1.4-6.5); NEUT% 73.3 % (42.2-75.2); PLT 248 X1000 (130-400); RBC 4.57 XMIL (4.2-5.4); RDW 13.8 % (11.5-14.5); WBC 5.06 X1000 (4.8-10.8)
--- NOTE | 2018-10-22 06:37 | Diag Imaging Result Doc PS360 ---
EXAM: KUB ABDOMEN HISTORY: sbo TECHNIQUE: Abdomen single view COMPARISON: 10/20/2018 FINDINGS: There continue to be air distended loops of bowel in the abdomen. Several of these appear slightly less distended than on the prior exam. No organomegaly. No abnormal abdominal calcifications. IMPRESSION: Slight interval improvement. Electronically signed by David Banuelos 10/22/2018 6:35 AM
[2018-10-22 07:05] LABS: AGAP 8; BUN 4 mg/dL (8-22); CALCIUM 8.4 mg/dL (8.8-10.2); CHLORIDE 94 mmol/L (98-107); COSMO 265; CREATININE 0.5 mg/dL (0.5-0.9); ESTIMATED GFR > 60; GLUCOSE 131 mg/dL (70-104); MAGNESIUM 1.5 mg/dL (1.5-2.7); POTASSIUM 3.9 mmol/L (3.5-5.1); SODIUM 133 mmol/L (136-145); TCO2 31 mmol/L (25-35)
[2018-10-22] MEDS: LOVENOX SUBQ SCH (08:42)
[2018-10-22] MEDS: ZOFRAN IV PRN ×2 (11:02→20:20)
--- NOTE | 2018-10-22 13:58 | GENERAL SURGERY PROGRESS NOTE ---
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 She denies any flatus. She says she feels some better. PHYSICAL EXAMINATION: Vital signs: She afebrile. Heart rate 89, blood pressure 113/75. Abdomen: Mildly distended. There are some bowel sounds present. Some tinkling is heard. IMAGING: Her x-ray shows slight improvement in the bowel gas distention. LABORATORY DATA: White count is 5000, hemoglobin 12.7, potassium 3.9. Her phosphorus is 2.0. PLAN: The plan will be to give her some potassium phosphate. Will continue with NG suction. cc: Jamaal Rock MD
--- NOTE | 2018-10-22 19:47 | PROGRESS NOTE ---
DATE: 10/26/2018 SUBJECTIVE: Patient has no focal complaints. OBJECTIVE: Blood pressure is 98/64, heart rate of 88, respiratory rate 21, temperature 98.5, 99% on room air. Her NG output was 200 yesterday, so less, and she is having bowel movements. PROBLEM LIST: 1. Small bowel obstruction. She still has NG output, but minimal. I think we could probably start cycling her NG tube. I will defer to Dr. Rock who is covering for Dr. Callaway this weekend. 2. Polysubstance abuse. Counseled on cessation. We will just have to kind of monitor her. No major issues related. 3. Hypokalemia and hypophosphatemia. She got potassium phosphate today. 4. Nutritional: Malnutrition. She is definitely cachectic. She is on D5 right now with lactated Ringers, so we will continue to follow closely. cc: Gibran Gonzalez MD
[2018-10-23] MEDS: DILAUDID IV PRN ×8 (00:04→23:39)
[2018-10-23] MEDS: ZOFRAN IV PRN ×5 (00:14→23:39)
[2018-10-23] MEDS: D5 LR IV SCH ×2 (00:15→15:08)
[2018-10-23] MEDS: POTASSIUM CHLORIDE IV SCH ×2 (00:15→15:08)
[2018-10-23] MEDS: NICODERM PATCH TD SCH (04:00)
[2018-10-23] MEDS: PROTONIX IV SCH ×2 (04:00→06:32)
[2018-10-23] MEDS: SODIUM CHLORIDE 0.9% INJ SCH (04:00)
[2018-10-23 06:40] LABS: BASO# 0.01 X1000 (0.0-0.2); BASO% 0.3 % (0.0-0.8); EOS# 0.07 X1000 (0.0-0.7); EOS% 1.8 % (0.0-10.0); HEMATOCRIT 38.7 % (37.0-47.0); HEMOGLOBIN 12.7 g/dL (12.0-16.0); LYMPH# 1.01 X1000 (1.2-3.4); LYMPH% 26.3 % (20.5-51.1); MCH 27.9 PG (27-31); MCHC 32.8 g/dL (33-37); MCV 85.1 FL (81-99); MONO# 0.65 X1000 (0.11-0.59); MONO% 16.9 % (1.7-9.3); MPV 9.7 FL (7.4-10.4); NEUT% 54.7 % (42.2-75.2); PLT 232 X1000 (130-400); RBC 4.55 XMIL (4.2-5.4); RDW 13.9 % (11.5-14.5); WBC 3.84 X1000 (4.8-10.8)
[2018-10-23 07:09] LABS: AGAP 8; BUN 4 mg/dL (8-22); CALCIUM 8.9 mg/dL (8.8-10.2); CHLORIDE 96 mmol/L (98-107); COSMO 266; CREATININE 0.6 mg/dL (0.5-0.9); ESTIMATED GFR > 60; GLUCOSE 119 mg/dL (70-104); POTASSIUM 3.8 mmol/L (3.5-5.1); SODIUM 134 mmol/L (136-145); TCO2 30 mmol/L (25-35)
--- NOTE | 2018-10-23 07:28 | GENERAL SURGERY PROGRESS NOTE ---
DATE: 10/23/2018 It is 7 o'clock in the morning. Ms. Berrios is doing better. She says she passed some flatus yesterday. Her abdomen today is soft. Her bowel sounds remain hypoactive. She is afebrile. Hemodynamics are good. The plan is to clamp her NG tube and if she tolerates that, she can start on clear liquids. She wants her Lezama out, which is fine. cc: Jamaal Rock MD
[2018-10-23] MEDS: LOVENOX SUBQ SCH (08:53)
--- NOTE | 2018-10-23 16:20 | PROGRESS NOTE ---
DATE: 10/23/2018 SUBJECTIVE: Patient has no major complaints. OBJECTIVE: Vital Signs: Blood pressure 103/63, heart rate of 70, respiratory rate 16, temperature 97.8 degrees, 97% on room air. Cardiovascular: Regular rate and rhythm. Pulmonary: Bilateral breath sounds clear to auscultation. GI: Soft, nontender, nondistended. Bowel sounds were positive. Extremities: Have no clubbing or cyanosis. Lymphatics: No peripheral edema. Neurological: Examination was nonfocal. Laboratory Data: White count is 3, hemoglobin and hematocrit 12 and 38, platelets 232,000. Sodium 134. PROBLEM LIST: 1. Small bowel obstruction. We are cycling the nasogastric tube. I appreciate Dr. Rock's assistance. Dr. Callaway will resume tomorrow. Anticipate nasogastric tube out hopefully by tomorrow and then advancing diet. 2. Polysubstance abuse. Aware. We will continue to monitor. 3. Hypokalemia, hypophosphatemia. That seems to be improving after supplementation. 4. Fluid, electrolytes, nutrition. She is on D5, lactated Ringer's with potassium. We will continue to monitor and hopefully anticipate discharge soon, in the next couple days. This depends on her clinical improvement. cc: Gibran Gonzalez MD
[2018-10-24 01:20] LABS: URINE SOURCE CLEAN CATCH
[2018-10-24 01:28] LABS: BILIRUBIN URINE NEGATIVE (NEGATIVE); BLOOD URINE NEGATIVE (NEGATIVE); COLOR YELLOW; GLUCOSE URINE NEGATIVE (NEGATIVE); KETONE URINE NEGATIVE (NEGATIVE); LEUKOCYTES URINE LARGE (NEGATIVE); NITRITE URINE NEGATIVE (NEGATIVE); PH URINE 8.5; PROTEIN URINE NEGATIVE (NEGATIVE); SP GRAVITY URINE 1.009; TURBIDITY URINE HAZY (CLEAR); UR EPITHELIAL CELLS <10 /HPF (<10); URINE BACTERIA NEGATIVE /HPF; URINE RBC <10 /HPF (<10); URINE WBC TNTC /HPF (<10); UROBILINOGEN URINE NORMAL (NORMAL)
[2018-10-24] MEDS: DILAUDID IV PRN ×7 (03:10→23:58)
[2018-10-24] MEDS: ZOFRAN IV PRN ×5 (03:10→23:57)
[2018-10-24] MEDS: NICODERM PATCH TD SCH (03:10)
[2018-10-24] MEDS: MONISTAT-7 VAG CREAM VAG SCH ×2 (03:36→20:45)
[2018-10-24] MEDS: POTASSIUM CHLORIDE IV SCH ×2 (04:48→20:44)
[2018-10-24] MEDS: D5 LR IV SCH ×2 (04:48→20:44)
[2018-10-24] MEDS: SODIUM CHLORIDE 0.9% INJ SCH (06:36)
[2018-10-24] MEDS: PROTONIX IV SCH (06:36)
[2018-10-24 06:42] LABS: BASO# 0.02 X1000 (0.0-0.2); BASO% 0.4 % (0.0-0.8); EOS# 0.07 X1000 (0.0-0.7); EOS% 1.5 % (0.0-10.0); HEMATOCRIT 40.8 % (37.0-47.0); HEMOGLOBIN 13.2 g/dL (12.0-16.0); IMM GRAN# 0.04 X1000 (0.0-0.04); IMM GRAN% 0.8 % (0.0-0.5); LYMPH# 0.91 X1000 (1.2-3.4); MCH 27.6 PG (27-31); MCHC 32.4 g/dL (33-37); MCV 85.2 FL (81-99); MONO# 0.73 X1000 (0.11-0.59); MONO% 15.3 % (1.7-9.3); MPV 9.6 FL (7.4-10.4); NEUT# 3.01 X1000 (1.4-6.5); PLT 286 X1000 (130-400); RBC 4.79 XMIL (4.2-5.4); RDW 14.1 % (11.5-14.5); WBC 4.78 X1000 (4.8-10.8)
[2018-10-24 07:16] LABS: AGAP 7; BUN 4 mg/dL (8-22); CALCIUM 9.3 mg/dL (8.8-10.2); CHLORIDE 97 mmol/L (98-107); COSMO 268; CREATININE 0.6 mg/dL (0.5-0.9); ESTIMATED GFR > 60; GLUCOSE 116 mg/dL (70-104); POTASSIUM 4.6 mmol/L (3.5-5.1); SODIUM 135 mmol/L (136-145); TCO2 31 mmol/L (25-35)
[2018-10-24] MEDS: LOVENOX SUBQ SCH (09:29)
--- NOTE | 2018-10-24 12:36 | PROGRESS NOTE ---
DATE: 10/24/2018 SUBJECTIVE: This morning Ms. Berrios refers to be doing okay. She was drinking some clear soup. OBJECTIVE: Vital signs: Blood pressure is 106/67, pulse is 71, respirations 16, temperature 98.2 degrees. General: Ms. Berrios is a 52-year-old female. She is in bed. She is not in any cardiopulmonary distress. HEENT: Mucosa is pink and moist. Anicteric. Acyanotic. Neck: Supple. Chest: Clear to auscultation. Cardiovascular: Regular rate and rhythm. Abdomen: Soft. Bowel sounds are present, slightly hypoactive. There is an old surgical scar on the anterior abdominal wall. Extremities: No pedal edema. INSPECTION CLERK: Patient is awake, alert, and oriented. There is no focal neurological deficit. LABORATORY DATA: WBC is 4.78, hemoglobin is 13.2, platelet count of 286,000. Chemistry is also reviewed. Sodium is 135; rest of chemistry is unremarkable. A KUB on the 16 shows some slight improvement. ASSESSMENT: 1. Small bowel obstruction. The patient is being managed more medically. NG tube has been removed and she is now on clear liquids. Of note, Ms. Berrios had an exploratory laparotomy with lysis of adhesions and open appendectomy on 07/22/2018 because of a small bowel obstruction as well. Surgery is on board. We will follow up with further recommendations from them. 2. History of polysubstance abuse. 3. Electrolyte abnormality including hyponatremia, hypophosphatemia. We will continue to replace all of these. 4. Suspected ileus. The patient is advised to be mobile to help with gut mobility. cc: Tommy Meza MD
[2018-10-24] MEDS ORDERED: DULCOLAX PR ONE (16:28)
--- NOTE | 2018-10-24 17:52 | GENERAL SURGERY PROGRESS NOTE ---
DATE: 10/24/2018 SUBJECTIVE: Doing better. Bowels are functioning. No abdominal pain. No fevers. No tachycardia. OBJECTIVE: General: She is alert. Abdomen: Soft. Cardiovascular: Normal rate. Pulmonary: No increased work of breathing. LABS: I reviewed her labs. ASSESSMENT AND PLAN: A 52-year-old female with bowel obstruction. Electrolytes are much improved. Her bowels are not functioning. We will remove her nasogastric tube and give her clear liquids and advance as tolerated. cc: Desmond Callaway MD
[2018-10-24] MEDS ORDERED: MONISTAT-7 VAG CREAM VAG SCH (21:00)
[2018-10-25] MEDS: DILAUDID IV PRN ×7 (03:35→21:50)
[2018-10-25] MEDS: PROTONIX IV SCH (06:44)
[2018-10-25] MEDS: ZOFRAN IV PRN ×3 (06:44→21:56)
[2018-10-25 07:16] LABS: AGAP 11; ALBUMIN 3.1 g/dL (3.5-5.0); BUN 5 mg/dL (8-22); CALCIUM 8.9 mg/dL (8.8-10.2); CHLORIDE 99 mmol/L (98-107); COSMO 272; CREATININE 0.6 mg/dL (0.5-0.9); ESTIMATED GFR > 60; GLUCOSE 114 mg/dL (70-104); MAGNESIUM 1.6 mg/dL (1.5-2.7); PHOSPHORUS 3.8 mg/dL (2.7-4.5); POTASSIUM 4.2 mmol/L (3.5-5.1); SODIUM 137 mmol/L (136-145); TCO2 27 mmol/L (25-35)
[2018-10-25] MEDS: D5 LR IV SCH ×2 (07:59→15:48)
[2018-10-25] MEDS: POTASSIUM CHLORIDE IV SCH ×2 (07:59→15:48)
[2018-10-25] MEDS: LOVENOX SUBQ SCH (09:41)
[2018-10-25] MEDS: NICODERM PATCH TD SCH (09:41)
--- NOTE | 2018-10-25 15:59 | PROGRESS NOTE ---
DATE: 10/25/2018 SUBJECTIVE: This morning Ms. Berrios refers to still have some abdominal discomfort. She said she started having a lot of pain yesterday; however, when I went to see her, she was eating some ice cream. OBJECTIVE: Vital signs: Blood pressure is 103/72, pulse is 94. General: Ms. Berrios is a 52- year-old female. She is in bed. She is not in any cardiopulmonary distress. HEENT: Mucosa is pink and moist. Anicteric. Acyanotic. Neck: Supple. Chest: Clear to auscultation. No crepitations. No rhonchi. Cardiovascular: Regular rate and rhythm. No murmurs, no rubs, no gallops. Abdomen: Soft, mildly tender overall. It is also slightly distended and tympanic. Bowel sounds are remarkably reduced. There is an old surgical scar on the anterior abdominal wall. Extremities: No pedal edema. Central nervous system: Patient is awake, alert, and oriented. There is no focal neurological deficit. LABORATORY DATA: Chemistry is completely normal. ASSESSMENT: 1. Small-bowel obstruction. NG tube has been removed. Patient is currently tolerating some clears. Still has some abdominal discomfort. We will repeat a KUB tomorrow morning and go from there. 2. History of polysubstance abuse. 3. Electrolyte abnormality, including hyponatremia, hypophosphatemia, all improved. 4. Suspected ileus. We will continue with some mobility and PT. Repeat the KUB tomorrow. 5. Protein calorie malnutrition. Noted. The patient is on Ensure diet supplementation. cc: Tommy Meza MD
[2018-10-25] MEDS ORDERED: MYLICON PO ONE (20:35)
[2018-10-25] MEDS: MONISTAT-7 VAG CREAM VAG SCH (21:50)
[2018-10-26] MEDS: DILAUDID IV PRN ×3 (01:46→09:03)
[2018-10-26] MEDS: ZOFRAN IV PRN ×5 (01:46→23:00)
[2018-10-26] MEDS: SODIUM CHLORIDE 0.9% INJ SCH (05:58)
[2018-10-26] MEDS: NICODERM PATCH TD SCH (05:58)
[2018-10-26] MEDS: PROTONIX IV SCH ×2 (05:58→06:38)
--- NOTE | 2018-10-26 08:28 | Diag Imaging Result Doc PS360 ---
KUB ABDOMEN - 10/26/2018 INDICATION: SBO COMPARISON: 10/22/2018 FINDINGS: There is little change in the abnormal, extensive gas distended small bowel that is mainly in the left abdomen. Small bowel loops measure up to 5 cm. There is also nonspecific gas dilation of the colon. No definite free air. There is a normal amount of stool. IMPRESSION: Abnormal distention of small bowel and colon similar to prior. Electronically signed by Ron Salomon 10/26/2018 8:26 AM
[2018-10-26] MEDS: LOVENOX SUBQ SCH (09:01)
[2018-10-26] MEDS ORDERED: RELISTOR SUBQ ONE (10:30)
[2018-10-26] MEDS: OFIRMEV 1000 MG/ISOTONIC SOLN 1,000 MG/100 ML BOTTLE IV PRN ×2 (12:14→20:42)
[2018-10-26] MEDS: TYLENOL PR PRN ×2 (12:38→18:41)
--- NOTE | 2018-10-26 14:01 | Diag Imaging Result Doc PS360 ---
CHEST-PORTABLE - 10/26/2018 INDICATION: S/P NG TUBE PLACEMENT COMPARISON: 10/20/2018 FINDINGS: There is a nasogastric tube in good position in the stomach. There are hyperinflated loops of bowel in the upper abdomen, indeterminate. The lungs are grossly clear and the heart size is normal. IMPRESSION: Good nasogastric tube placement. Electronically signed by Ron Salomon 10/26/2018 1:58 PM
[2018-10-26] MEDS: CLINIMIX E 4.25%-5% SOLUTION 1,000 ML IV SCH (14:03)
[2018-10-26] MEDS: LIPOSYN 20% 250 ML IV SCH (14:04)
[2018-10-26] MEDS: BENTYL IM SCH ×2 (16:11→18:55)
--- NOTE | 2018-10-26 17:06 | PROGRESS NOTE ---
DATE: 10/26/2018 SUBJECTIVE: This morning Ms. Berrios refers to be doing fairly the same. She has a lot of abdominal pain. She says she actually threw up yesterday. OBJECTIVE: Vital Signs: Blood pressure 112/77, pulses 110, respirations 16, and temperature is 97.5 degrees. General: Ms. Berrios is a 52-year-old female. She is in bed. She looks wasted with a BMI of 19.9. Mucosa is pink and moist. Anicteric. Acyanotic. Neck: Supple. Chest: Clear to auscultation. No crepitations. No rhonchi. Cardiovascular: Regular rate and rhythm. No murmurs. Abdomen: Soft and distended. It is tympanic to percussion. Bowel sounds are remarkably reduced. There is an old surgical scar on the anterior abdominal wall. Extremities: No pedal edema. Distal pulses present. [employer]: Patient is awake, alert, and oriented. There is no focal neurological deficit. LABORATORY DATA: The patient's prealbumin is 6.7. No other labs for this morning. A KUB done early this morning shows abnormal distention of small bowel and colon. ASSESSMENT: 1. Small bowel obstruction. The patient's NG tube was removed about 2 days ago. She seems to have been tolerating some clear liquids. However, since yesterday, she has been having more pain. Her abdomen looks more distended, and a repeat KUB this morning shows a worsening pattern. We are going to put back the NG tube, keep the patient NPO, and adequately hydrate her. 2. History of polysubstance abuse. 3. Severe protein calorie malnutrition with prealbumin of 6.7. We will start the patient on Clinimix with lipid infusion and consult dietitian. 4. Electrolyte abnormality including hypopotassemia, hypophosphatemia and hypomagnesemia replaced. In general today, Ms. Berrios's abdomen looks remarkably worse. A KUB shows more distention, and she has been hurting and throwing up so will keep her NPO. I have ordered an NG tube placement. I have also given her a dose of Relistor and discontinued her narcotics. Will be pending further evaluation from surgery today. cc: MD VANE Pierce
[2018-10-26] MEDS: MONISTAT-7 VAG CREAM VAG SCH (23:00)
[2018-10-27] MEDS: ZOFRAN IV PRN ×4 (03:42→21:43)
[2018-10-27] MEDS: CLINIMIX E 4.25%-5% SOLUTION 1,000 ML IV SCH ×3 (03:43→12:44)
[2018-10-27] MEDS: NICODERM PATCH TD SCH (03:43)
[2018-10-27] MEDS: OFIRMEV 1000 MG/ISOTONIC SOLN 1,000 MG/100 ML BOTTLE IV PRN ×4 (03:43→21:42)
[2018-10-27] MEDS: PROTONIX IV SCH ×2 (03:43→08:11)
[2018-10-27] MEDS: SODIUM CHLORIDE 0.9% INJ SCH (03:43)
[2018-10-27] MEDS: BENTYL IM SCH ×3 (08:25→18:33)
[2018-10-27] MEDS: LOVENOX SUBQ SCH (08:25)
--- NOTE | 2018-10-27 09:28 | Diag Imaging Result Doc PS360 ---
KUB ABDOMEN - 10/27/2018 INDICATION: SBO COMPARISON: 10/26/2018 FINDINGS: There is no significant change in the several abnormally gas-distended loops of small bowel mainly in the left abdomen. There is mild gaseous distention of the colon as well. No evidence of free air. IMPRESSION: No change from prior. Electronically signed by Ron Salomon 10/27/2018 9:25 AM
[2018-10-27] MEDS: LIPOSYN 20% 250 ML IV SCH (12:36)
--- NOTE | 2018-10-27 13:04 | GENERAL SURGERY PROGRESS NOTE ---
DATE: 10/27/2018 SUBJECTIVE: NG tube had to be replaced due to increasing abdominal distention, colicky abdominal discomfort. No fevers. OBJECTIVE: Vital Signs: Pulse 76, blood pressure 110/73, oxygen saturation 98%. General: She is alert. Cardiovascular: Normal rate. Pulmonary: No increased work of breathing. NG tube is in place with bilious output. Abdomen: Distended but soft. Nontender. Prealbumin is low at 3.7. Her electrolytes, potassium was normal the day before yesterday. Her magnesium was improving. I reviewed her abdominal and chest x-ray films. There is no free air but changes are consistent with a small bowel obstruction. ASSESSMENT AND PLAN: A 52-year-old female. She presented last week with a bowel obstruction. This resolved over the weekend. She was tolerating a diet but now she has had increasing distention. I think at this juncture, she warrants surgical exploration as it is doubtful that she will resolve this nonoperatively. I have discussed risks of bleeding, infection, the possibility of bowel resection, possibility of an ostomy, possibility of wound healing issues given her malnutrition. She is on peripheral nutrition but came into this hospitalization quite cachectic with significant muscle atrophy. She will be high risk but I think at this juncture, unfortunately, our hand is forced. We will continue nasogastric tube decompression. I have made her nothing per oral and posed her tomorrow for an exploratory laparotomy. cc: Desmond Callaway MD
--- NOTE | 2018-10-27 15:53 | PROGRESS NOTE ---
DATE: 10/27/2018 SUBJECTIVE: Today Ms. Berrios refers to continue hurting in her abdomen. NG tube is still in place. OBJECTIVE: Vital Signs: Blood pressure is 110/73, pulse is 76, respirations 20 , temperature 97.3. General: Ms. Berrios is a 52-year-old female. She is in bed , not in distress. HEENT: Mucosa is pink and moist. Anicteric. Acyanotic. Neck: Supple. Chest : Good air entry bilaterally. No crepitations. No rhonchi. Cardiovascular: Regular rate and rhythm. No murmurs, no rubs, no gallops. Gastrointestinal: Abdomen is soft, distended, is minimally tender all over. There is tympanic to percussion. Bowel sounds are remarkably reduced. There is an old surgical scar on the anterior abdominal wall. Extremities: No pedal edema. Distal pulses present. Central Nervous System: Patient is awake, alert and oriented. There is no focal neurological deficit. LABORATORY DATA: None for today. A KUB a KUB this morning shows several abnormal gas distended loops of small bowel, mainly in the left abdomen. ASSESSMENT: 1. Small bowel obstruction. Patient is currently on NG tube, has not shown any significant improvement. She continues to be hurting. She has been evaluated by Surgery and there is a plan for exploratory laparotomy tomorrow. 2. History of polysubstance abuse. Patient is counseled. 3. Severe protein calorie malnutrition with prealbumin of 6.7 on presentation. The patient is currently on Clinimix. Dietitian is on board. 4. Multiple mineral abnormalities secondary to protein calorie malnutrition, have been replaced. So, in general, I feel Ms. Berrios did show some improvement initially during the hospital course; however, for the past couple 2 or 3 days she has been hurting. NG tube has been put back. Subsequent x-rays continue to show dilated loops of bowel. I think she is obstructed. There is a plan for exploratory laparotomy tomorrow by Surgery. cc: Tommy Meza MD [facility]
[2018-10-27] MEDS: MONISTAT-7 VAG CREAM VAG SCH (21:43)
[2018-10-28] MEDS: CLINIMIX E 4.25%-5% SOLUTION 1,000 ML IV SCH ×3 (01:50→17:46)
[2018-10-28] MEDS: NICODERM PATCH TD SCH ×2 (04:07→20:33)
[2018-10-28] MEDS: ZOFRAN IV PRN ×2 (04:23→12:02)
[2018-10-28] MEDS: OFIRMEV 1000 MG/ISOTONIC SOLN 1,000 MG/100 ML BOTTLE IV PRN (04:23)
[2018-10-28] MEDS: SODIUM CHLORIDE 0.9% INJ SCH (06:37)
[2018-10-28] MEDS: PROTONIX IV SCH (06:37)
[2018-10-28 06:39] LABS: BASO# 0.02 X1000 (0.0-0.2); BASO% 0.2 % (0.0-0.8); EOS# 0.06 X1000 (0.0-0.7); EOS% 0.6 % (0.0-10.0); HEMATOCRIT 37.4 % (37.0-47.0); HEMOGLOBIN 11.9 g/dL (12.0-16.0); IMM GRAN# 0.04 X1000 (0.0-0.04); IMM GRAN% 0.4 % (0.0-0.5); LYMPH# 1.17 X1000 (1.2-3.4); LYMPH% 12.1 % (20.5-51.1); MCH 27.3 PG (27-31); MCHC 31.8 g/dL (33-37); MCV 85.8 FL (81-99); MONO# 1.28 X1000 (0.11-0.59); MONO% 13.2 % (1.7-9.3); MPV 9.7 FL (7.4-10.4); NEUT# 7.11 X1000 (1.4-6.5); NEUT% 73.5 % (42.2-75.2); PLT 310 X1000 (130-400); RBC 4.36 XMIL (4.2-5.4); RDW 14.2 % (11.5-14.5); WBC 9.68 X1000 (4.8-10.8)
[2018-10-28 06:57] LABS: AGAP 9; ALB/GLOB RATIO 1.2; ALBUMIN 3.1 g/dL (3.5-5.0); ALKALINE PHOSPHATASE 69 U/L (32-104); BUN 16 mg/dL (8-22); CALCIUM 8.5 mg/dL (8.8-10.2); CHLORIDE 101 mmol/L (98-107); COSMO 275; CREATININE 0.6 mg/dL (0.5-0.9); ESTIMATED GFR > 60; GLUCOSE 106 mg/dL (70-104); GOT 19 U/L (10-30); GPT 12 U/L (10-36); MAGNESIUM 1.9 mg/dL (1.5-2.7); PHOSPHORUS 3.5 mg/dL (2.7-4.5); POTASSIUM 3.9 mmol/L (3.5-5.1); SODIUM 137 mmol/L (136-145); TCO2 27 mmol/L (25-35); TOTAL BILIRUBIN 0.34 mg/dL (0.20-1.00); TOTAL PROTEIN 5.6 g/dL (6.3-8.3)
[2018-10-28] MEDS: LOVENOX SUBQ SCH (09:30)
[2018-10-28] MEDS: BENTYL IM SCH (09:31)
[2018-10-28] MEDS ORDERED: OFIRMEV 1000 MG/ISOTONIC SOLN 1,000 MG/100 ML BOTTLE IV PRN (12:35)
[2018-10-28] MEDS: LIPOSYN 20% 250 ML IV SCH (12:46)
--- NOTE | 2018-10-28 13:50 | Diag Imaging Result Doc PS360 ---
EXAM: ABDOMEN FLAT/UPRIGHT HISTORY: SBO TECHNIQUE: Flat and upright abdomen, two views COMPARISON: None. FINDINGS: A nasogastric tube overlies the stomach. There are dilated loops of bowel mid and lower abdomen. Several of these appear slightly less distended than on the prior study. No organomegaly. No abnormal abdominal or pelvic calcifications. IMPRESSION: Slight interval improvement. Electronically signed by David Banuelos 10/28/2018 1:48 PM
[2018-10-28] MEDS: TYLENOL PR PRN (14:19)
--- NOTE | 2018-10-28 15:07 | PROGRESS NOTE ---
DATE: 10/28/2018 SUBJECTIVE: This morning Ms. Berrios referred to be feeling a little better. Still has some abdominal pain, but much better. She says she has had about two large bowel movements, as well. OBJECTIVE: Vital Signs: Blood pressure is 109/60, pulse is 61, respirations 20 , temperature 98.8. Patient was saturating 99% on room air. General: Ms. Berrios is a 52- year-old female. She is in bed. No distress. HEENT: Mucosa is pink and moist. Anicteric. Acyanotic. Neck: Supple. Chest: Clear to auscultation. No crepitations. No rhonchi. Cardiovascular: Regular rate and rhythm. No murmurs, no rubs, no gallops. Gastrointestinal: Abdomen was soft. Minimally tender all over. Still tympanic, but bowel sounds are getting better. There is an old surgical scar on the anterior abdominal wall. Extremities: No pedal edema. Distal pulses present. Central Nervous System: Patient was awake, alert and oriented. There is no focal neurological deficit. LABORATORY DATA: WBC is 9.68, hemoglobin is 11.9, platelet count of 310,000. Chemistry is also reviewed, is completely normal. Patient's albumin is still 3.1, prealbumin was 6.7 a couple days ago. The patient continues to be on Clinimix. ASSESSMENT: 1. Small bowel obstruction. This morning, Ms. Berrios referred that she has had about two bowel movements. A KUB shows slight interval improvement. The patient was pending exploratory laparotomy today. Will be waiting on surgery to evaluate her and then go from there. We probably might be able to wait to see if this will resolve on its own again. 2. History of polysubstance abuse. Patient is counseled. 3. Severe protein calorie malnutrition with prealbumin of 6.7 on presentation. The patient is currently on Clinimix and with lipid infusion. Dietitian is on board. 4. Multiple mineral and vitamin abnormalities. We will continue to replace. So, in general, I think Ms. Berrios is doing fairly okay. She had about 800 output from the NG tube. It is documented that she has had one bowel movement yesterday. However, according to her, she did have two. She feels less pain and a KUB this morning shows some slight improvement. Will be pending further recommendations from surgery. The patient will continue to be n.p.o. and continue with IV Clinimix with lipid infusion. cc: Tommy Meza MD [facility]
[2018-10-28] MEDS ORDERED: DIPRIVAN 1% ONE (16:49)
[2018-10-28] MEDS ORDERED: XYLOCAINE-MPF 2% ONE (16:49)
[2018-10-28] MEDS ORDERED: KEFZOL ONE (17:02)
[2018-10-28] MEDS ORDERED: ZOFRAN ONE (17:12)
[2018-10-28] MEDS ORDERED: ZEMURON ONE (17:12)
[2018-10-28 17:38] LABS: URINE SOURCE CATH
[2018-10-28] MEDS ORDERED: ROBINUL ONE (17:38)
[2018-10-28] MEDS ORDERED: NEOSTIGMINE ONE (17:38)
[2018-10-28 17:40] LABS: BILIRUBIN URINE NEGATIVE (NEGATIVE); BLOOD URINE NEGATIVE (NEGATIVE); COLOR YELLOW; GLUCOSE URINE NEGATIVE (NEGATIVE); KETONE URINE NEGATIVE (NEGATIVE); LEUKOCYTES URINE NEGATIVE (NEGATIVE); NITRITE URINE NEGATIVE (NEGATIVE); PH URINE 6.5; PROTEIN URINE TRACE mg/dL (NEGATIVE); SP GRAVITY URINE 1.026; TURBIDITY URINE CLEAR (CLEAR); UROBILINOGEN URINE NORMAL (NORMAL)
[2018-10-28 17:42] LABS: UR EPITHELIAL CELLS <10 /HPF (<10); URINE BACTERIA NEGATIVE /HPF; URINE RBC <10 /HPF (<10); URINE WBC <10 /HPF (<10)
[2018-10-28] MEDS ORDERED: DILAUDID ONE ×2 (17:42→18:29)
[2018-10-28] MEDS: DILAUDID ONE ×2 (18:05→18:15)
[2018-10-28] MEDS ORDERED: NARCAN IV PRN (18:15)
[2018-10-28] MEDS ORDERED: DILAUDID-HP 30 MG in NS 27 ML IV PRN (18:15)
[2018-10-28] MEDS: LR 1,000 ML IV SCH (19:10)
[2018-10-28] MEDS: OFIRMEV 1000 MG/ISOTONIC SOLN 1,000 MG/100 ML BOTTLE IV SCH (20:32)
[2018-10-28] MEDS: MONISTAT-7 VAG CREAM VAG SCH (20:33)
[2018-10-28] MEDS: PERIDEX MT SCH (20:33)
--- NOTE | 2018-10-28 23:34 | OPERATIVE NOTE ---
PROCEDURE DATE: 10/28/2018 PREOPERATIVE DIAGNOSIS: Small-bowel obstruction. POSTOPERATIVE DIAGNOSIS: Small-bowel obstruction. PROCEDURE PERFORMED: Exploratory laparotomy with lysis of adhesions. ANESTHESIA: General. ESTIMATED BLOOD LOSS: 20 mL. SPECIMENS: None. INDICATION: A 52-year-old female who has had a persistent small-bowel obstruction despite attempts at nasogastric tube decompression and nonoperative management. OPERATIVE FINDINGS: There was dense fibrotic bands at several locations along the small bowel. Otherwise, no acute abnormality within the abdomen. OPERATIVE NOTE: Risks, benefits, alternatives were discussed with patient, she consented to the procedure. She was seen preoperatively and surgical site was confirmed. She was taken to the operating room, placed in supine position. General anesthesia induced without complication. All bony prominences were padded. Her abdomen is prepped chlorhexidine solution after a Lezama catheter was placed. She already had a nasogastric tube in place. After a time-out, we made a midline incision through a previous scar, entered the abdomen in a virgin area superiorly. There is no adhesions to the midline. We extended our incision down the pubic symphysis and widely exposed the abdomen. We eviscerated the small bowel and encountered dense fibrotic bands that we lysed easily. We started the ligament of Treitz, ran this back to the terminal ileum. There were some more adhesions that we encountered that we divided. At which point, we identified the cecum. The remainder of the colon and rectum were normal. Liver was normal and gallbladder was normal. Stomach was somewhat distended but there was no mass. There was no evidence of perforation. We, again, inspected the bowel and assured that there was no serosal injury, there was not. We placed the bowel back in its normal anatomic position, covered it with omentum and confirmed hemostasis. The fascia was then closed with a running #1 looped PDS suture with 0 Vicryl internal retention sutures. Skin was closed with surgical clips. Dressing was applied. She tolerated well, she was awoken and transferred to recovery. No family was available. cc: Desmond Callaway MD
[2018-10-29] MEDS: OFIRMEV 1000 MG/ISOTONIC SOLN 1,000 MG/100 ML BOTTLE IV SCH ×3 (00:27→12:31)
[2018-10-29] MEDS: CLINIMIX E 4.25%-5% SOLUTION 1,000 ML IV SCH ×2 (05:32→18:21)
[2018-10-29] MEDS: SODIUM CHLORIDE 0.9% INJ SCH (06:17)
[2018-10-29] MEDS: PROTONIX IV SCH (06:17)
[2018-10-29 06:57] LABS: BASO# 0.02 X1000 (0.0-0.2); BASO% 0.1 % (0.0-0.8); EOS# 0.07 X1000 (0.0-0.7); EOS% 0.5 % (0.0-10.0); HEMATOCRIT 41.6 % (37.0-47.0); HEMOGLOBIN 13.4 g/dL (12.0-16.0); IMM GRAN# 0.08 X1000 (0.0-0.04); IMM GRAN% 0.6 % (0.0-0.5); LYMPH# 0.87 X1000 (1.2-3.4); LYMPH% 6.2 % (20.5-51.1); MCH 27.6 PG (27-31); MCHC 32.2 g/dL (33-37); MCV 85.6 FL (81-99); MONO% 9.3 % (1.7-9.3); MPV 9.6 FL (7.4-10.4); NEUT# 11.71 X1000 (1.4-6.5); NEUT% 83.3 % (42.2-75.2); PLT 389 X1000 (130-400); RBC 4.86 XMIL (4.2-5.4); RDW 14.3 % (11.5-14.5); WBC 14.05 X1000 (4.8-10.8)
[2018-10-29 07:20] LABS: AGAP 9; BUN 19 mg/dL (8-22); CALCIUM 8.3 mg/dL (8.8-10.2); CHLORIDE 100 mmol/L (98-107); COSMO 268; CREATININE 0.5 mg/dL (0.5-0.9); ESTIMATED GFR > 60; GLUCOSE 115 mg/dL (70-104); POTASSIUM 4.1 mmol/L (3.5-5.1); SODIUM 132 mmol/L (136-145); TCO2 23 mmol/L (25-35)
[2018-10-29] MEDS: PERIDEX MT SCH ×4 (07:49→21:09)
[2018-10-29] MEDS: LOVENOX SUBQ SCH ×2 (07:49→08:23)
--- NOTE | 2018-10-29 10:32 | Diag Imaging Result Doc PS360 ---
EXAM: KUB ABDOMEN HISTORY: SBO TECHNIQUE: Abdomen single view COMPARISON: 10/28/2018 FINDINGS: A nasogastric tube enters the stomach. There are multiple midline skin rian. Air and stool is found throughout the small bowel loops and colon. No dilated loops. No organomegaly. IMPRESSION: Findings do not appear to represent a small bowel obstruction. Electronically signed by David Banuelos 10/29/2018 10:29 AM
[2018-10-29] MEDS: LR 1,000 ML IV SCH (10:33)
[2018-10-29] MEDS: LIPOSYN 20% 250 ML IV SCH (12:31)
--- NOTE | 2018-10-29 13:34 | PROGRESS NOTE ---
DATE: 10/29/2018 SUBJECTIVE: This morning, Ms. Berrios refers to be feeling a lot better. She underwent exploratory laparotomy with lysis of adhesions yesterday for small-bowel obstruction, which was not resolving. This morning, she is tolerating some ice chips. OBJECTIVE: Vital signs: Blood pressure is 106/67, pulse is 84, respirations 16. Temperature 97.4 degrees. General: Ms. Berrios is a 52-year-old female. She is in bed. She is not in any cardiopulmonary distress. Mucosa is pink and moist. Anicteric. Acyanotic. Neck: Supple. Chest: Clear to auscultation. There was no crepitations. No rhonchi. Cardiovascular: Regular rate and rhythm. No murmurs, no rubs, no gallops. Gastrointestinal: Abdomen is soft. It is still minimally tender all over. There is a new dressing over the anterior abdominal, wall which looks clean. It is not soiled with blood. Extremities: No pedal edema. Central Nervous System: Patient is awake, alert, oriented. There is no focal neurological deficit. LABORATORY DATA: WBC is 14.05, hemoglobin is 13.4, platelet count of 389,000. Chemistry is also reviewed. Sodium is 132. The rest of the chemistries is completely normal. Current KUB is improved. ASSESSMENT: 1. Small bowel obstruction. Patient is status post exploratory laparotomy with lysis of adhesion. Today is day 1 postop. She has been cleared by surgery to have ice chips. We will follow up accordingly. 2. History of polysubstance abuse. 3. Severe protein calorie malnutrition with prealbumin of 6.7 on presentation. The patient is on Clinimix and lipid infusion. Dietitian is on board. 4. Multiple mineral and vitamin deficiencies. We will continue to replace. 5. Reactive leukocytosis. We will continue observing. In general, Ms. Berrios seems to be doing fairly okay. Today is day 1 post exploratory laparotomy with lysis of adhesions. Surgery is on board. They have cleared her for ice chips and popsicles this morning. We are going to continue with NG tube, adequate hydration and parenteral nutrition for now and follow up with further recommendations from surgery. cc: Tommy Meza MD
[2018-10-29] MEDS: ZOFRAN IV PRN ×3 (14:43→22:44)
--- NOTE | 2018-10-29 15:09 | GENERAL SURGERY PROGRESS NOTE ---
DATE: 10/29/2018 SUBJECTIVE: The patient is doing okay overnight. She feels much better than she did before surgery. OBJECTIVE: Vital Signs: She is afebrile. Vital signs are stable. NG tube 650 mL of bilious. CV: Regular rate and rhythm. Respiratory: No work of breathing. GI: Soft, nondistended, appropriately tender. Incisional dressing is clean and dry. General: She is alert oriented x4. No acute distress. LABORATORY: White blood cell count 14,000. Sodium 132, potassium 4.1, BUN 19, creatinine 0.5, glucose 115. ASSESSMENT/PLAN: A 52-year-old female status post exploratory laparotomy with lysis of adhesions. We are planning to get her up on the side of the bed today. We will continue peripheral nutrition. She is not ready to take oral yet. I will let her have ice chips and popsicles, and we will continue the nasogastric tube to suction for now. cc: Nils Segura MD
[2018-10-29] MEDS: MONISTAT-7 VAG CREAM VAG SCH ×2 (19:46→20:01)
[2018-10-29] MEDS: NICODERM PATCH TD SCH ×2 (19:48→20:02)
[2018-10-30] MEDS: TYLENOL PR PRN (00:47)
[2018-10-30] MEDS: ZOFRAN IV PRN ×5 (03:46→22:37)
[2018-10-30] MEDS: PROTONIX IV SCH ×2 (05:02→06:08)
[2018-10-30] MEDS: SODIUM CHLORIDE 0.9% INJ SCH (05:02)
[2018-10-30 07:45] LABS: BASO# 0.01 X1000 (0.0-0.2); BASO% 0.1 % (0.0-0.8); EOS# 0.09 X1000 (0.0-0.7); HEMATOCRIT 36.3 % (37.0-47.0); HEMOGLOBIN 11.6 g/dL (12.0-16.0); IMM GRAN# 0.05 X1000 (0.0-0.04); IMM GRAN% 0.5 % (0.0-0.5); LYMPH% 8.5 % (20.5-51.1); MCH 27.5 PG (27-31); MONO# 1.01 X1000 (0.11-0.59); MONO% 10.7 % (1.7-9.3); MPV 9.8 FL (7.4-10.4); NEUT# 7.48 X1000 (1.4-6.5); NEUT% 79.2 % (42.2-75.2); PLT 319 X1000 (130-400); RBC 4.22 XMIL (4.2-5.4); RDW 14.2 % (11.5-14.5); WBC 9.44 X1000 (4.8-10.8)
[2018-10-30] MEDS: LOVENOX SUBQ SCH ×2 (07:47→12:36)
[2018-10-30] MEDS: PERIDEX MT SCH ×3 (07:47→20:24)
[2018-10-30] MEDS: CLINIMIX E 4.25%-5% SOLUTION 1,000 ML IV SCH ×2 (07:47→20:24)
[2018-10-30 08:34] LABS: AGAP 9; BUN 13 mg/dL (8-22); CALCIUM 8.6 mg/dL (8.8-10.2); CHLORIDE 93 mmol/L (98-107); COSMO 265; CREATININE 0.5 mg/dL (0.5-0.9); ESTIMATED GFR > 60; GLUCOSE 107 mg/dL (70-104); MAGNESIUM 1.8 mg/dL (1.5-2.7); PHOSPHORUS 3.3 mg/dL (2.7-4.5); PREALBUMIN 7.8 mg/dL (20-40); SODIUM 132 mmol/L (136-145); TCO2 30 mmol/L (25-35)
[2018-10-30] MEDS: LR 1,000 ML IV SCH (12:35)
--- NOTE | 2018-10-30 13:08 | GENERAL SURGERY PROGRESS NOTE ---
DATE: 10/30/2018 SUBJECTIVE: The patient is doing okay. No severe pain, nausea, or vomiting. She has not passed gas or had a bowel movement yet. OBJECTIVE: Vital Signs: She is afebrile. Vital signs are stable. NG tube output 1000 mL of bilious. General: She is alert and oriented x4. No acute distress. GI: Abdomen is soft, mildly distended. Decreased bowel sounds. Appropriately tender to palpation. Incision is clean, dry, and intact. ASSESSMENT AND PLAN: A 52-year-old female status post exploratory laparotomy with lysis of adhesions. She is stable. We will continue the nasogastric tube to suction. We are awaiting return of bowel function. I encouraged ambulation. cc: Nils Segura MD
--- NOTE | 2018-10-30 14:21 | PROGRESS NOTE ---
DATE: 10/30/2018 SUBJECTIVE: This morning Ms. Berrios refers to be doing fairly okay. Still hurting in the abdomen, but not like before the surgery. She also denies having any bowel movement. She is not passing any gas. OBJECTIVE: Vital Signs: Blood pressure is 109/76, pulse is 84, respirations 16 , temperature 98.4. General: Ms. Berrios is a 52-year-old female. She is in bed, no distress. HEENT: Mucosa is pink and moist. Anicteric. Acyanotic. Neck: Supple. Chest : Good air entry bilaterally. There are no crepitations, no rhonchi. Cardiovascular: Regular rate and rhythm. No murmurs, no rubs, no gallops. Gastrointestinal: Abdomen is soft. There is still sterile dressing over the anterior abdominal wall. Mildly tender all over, but no rebound, no guarding. Bowel sounds are present, but hypoactive. Extremities: No pedal edema. Central Nervous System: Patient is awake, alert and oriented. LABORATORY DATA: WBC is 9.44, hemoglobin is 11.6, platelet count of 319,000. Chemistry is also reviewed. Sodium is 132. Rest of chemistry is completely unremarkable. Prealbumin is 7.8. ASSESSMENT: 1. Small bowel obstruction. Patient is status post exploratory laparotomy with lysis of adhesion. Today is day #2 postop. Seems to be tolerating ice chips; however , she has not had any bowel movement or passing any gas. Surgery recommends the patient to be moving around to help mobilize the gut. 2. History of polysubstance abuse. 3. Severe protein calorie malnutrition with prealbumin of 6.7 This has slightly improved. We will continue with the Clinimix with lipid infusion. Dietitian is on board. 4. Multiple vitamin and mineral deficiencies. We will continue to replace. 5. Reactive leukocytosis, improved. PLAN: 1. So, in general, Ms. Berrios seems to be doing fairly okay. Abdominal pain seems to have improved after the surgical intervention. She has not had a return of bowel functions, so we will continue keeping the NG tube and follow up with further recommendations from surgery. 2. The patient has been advised to be up at least twice per day in the chair and walk around as much, as well. cc: Tommy Meza MD [facility]
[2018-10-30] MEDS: DUONEB (A & A) INH PRN ×2 (16:44→20:30)
[2018-10-30] MEDS: MONISTAT-7 VAG CREAM VAG SCH (20:25)
[2018-10-30] MEDS: NICODERM PATCH TD SCH (22:37)
[2018-10-31] MEDS: ZOFRAN IV PRN ×5 (02:41→18:14)
[2018-10-31] MEDS: DUONEB (A & A) INH PRN ×5 (04:26→23:39)
[2018-10-31] MEDS: PROTONIX IV SCH ×2 (05:55→06:43)
[2018-10-31] MEDS: SODIUM CHLORIDE 0.9% INJ SCH (05:55)
[2018-10-31] MEDS: LIPOSYN 20% 250 ML IV SCH ×2 (05:57→11:21)
[2018-10-31] MEDS: PERIDEX MT SCH ×2 (08:08→20:09)
[2018-10-31] MEDS: LOVENOX SUBQ SCH (08:09)
[2018-10-31] MEDS: CLINIMIX E 4.25%-5% SOLUTION 1,000 ML IV SCH ×2 (11:21→23:40)
[2018-10-31] MEDS: LR 1,000 ML IV SCH ×2 (11:26→18:40)
[2018-10-31] MEDS ORDERED: DULCOLAX PR ONE (14:06)
--- NOTE | 2018-10-31 15:14 | PROGRESS NOTE ---
DATE: 10/31/2018 INTERVAL HISTORY: The patient reports an increase in appetite. No further nausea or vomiting, but still no bowel movement or flatus. No acute events overnight. No new complaints. REVIEW OF SYSTEMS: Twelve-point review of systems negative except as per interval history. LABS: CBC unremarkable. Sodium 132, chloride 93, glucose 107, prealbumin 7.8, calcium 8.6, phosphorus 3.3, magnesium 1.8. VITAL SIGNS: T-max 98.8 degrees, pulse 94, respirations 21, blood pressure 133/78, O2 saturation 98% on room air. PHYSICAL EXAMINATION: General: No acute distress. Vitals: As above. HEENT: Normocephalic, atraumatic. Moist mucous membranes. No cervical adenopathy. Cardiovascular: Regular rate and rhythm. No murmurs, rubs, or gallops. Pulmonary: Clear to auscultation bilaterally. No wheezing, rales, or rhonchi. Abdomen: Soft. Anterior abdomen with dressing in place. Slight expected postop tenderness but no rebound and no guarding. Bowel sounds significantly decreased but are present. Extremities: Peripheral pulses intact. No clubbing, cyanosis, or edema. Neurologic: Cranial nerves grossly intact. No focal deficits identified. Psychiatric: Normal mood and affect. Awake, alert, and oriented x3. Skin: No new rashes or lesions identified. ASSESSMENT AND PLAN: 1. Small bowel obstruction. The patient is status post exploratory laparotomy with lysis of adhesions on 10/28/2018. Tolerating ice chips and reports increase in appetite, but no bowel movement or flatus thus far. Surgery recommending mobilization. Awaiting further surgical recommendations and return of bowel function. 2. History of polysubstance abuse noted. 3. Severe protein calorie malnutrition. The patient is quite thin on exam. Prealbumin is significantly low, improving somewhat. On Clinimix. Dietary following. 4. Leukocytosis, likely reactive to surgery and general medical condition, resolved on last check. No signs of infection. 5. Hyponatremia, mild, asymptomatic. We will monitor. 6. Deep vein thrombosis prophylaxis. Sequential compression devices.
[2018-10-31] MEDS: NICODERM PATCH TD SCH (20:09)
[2018-10-31] MEDS: MONISTAT-7 VAG CREAM VAG SCH (20:10)
--- NOTE | 2018-10-31 20:23 | GENERAL SURGERY PROGRESS NOTE ---
DATE: 10/31/2018 SUBJECTIVE: No flatus yet. Minimal NG tube output. No fevers, no tachycardia. Overnight blood pressure has been okay. Abdomen is soft. Dressing is intact. I reviewed her labs. ASSESSMENT AND PLAN: This is a 52-year-old female status post exploratory laparotomy. Her electrolytes are okay. We will remove her Lezama catheter and possibly take her nasogastric tube out. I want to give her a Dulcolax suppository. I have encouraged her to be out of bed and ambulate. cc: Desmond Callaway MD
[2018-11-01] MEDS: ZOFRAN IV PRN ×4 (02:50→20:28)
[2018-11-01] MEDS ORDERED: TEARISOL OPH SOLUTION BOTH EYES PRN (04:30)
[2018-11-01] MEDS: DUONEB (A & A) INH PRN ×6 (05:08→23:25)
[2018-11-01] MEDS: SODIUM CHLORIDE 0.9% INJ SCH (05:38)
[2018-11-01] MEDS: PROTONIX IV SCH ×2 (05:38→06:15)
[2018-11-01 07:24] LABS: BASO# 0.01 X1000 (0.0-0.2); BASO% 0.2 % (0.0-0.8); EOS# 0.07 X1000 (0.0-0.7); EOS% 1.1 % (0.0-10.0); HEMATOCRIT 32.8 % (37.0-47.0); HEMOGLOBIN 10.6 g/dL (12.0-16.0); IMM GRAN# 0.04 X1000 (0.0-0.04); IMM GRAN% 0.6 % (0.0-0.5); LYMPH% 11.2 % (20.5-51.1); MCH 27.6 PG (27-31); MCHC 32.3 g/dL (33-37); MCV 85.4 FL (81-99); MONO# 0.63 X1000 (0.11-0.59); MONO% 10.1 % (1.7-9.3); MPV 8.9 FL (7.4-10.4); NEUT% 76.8 % (42.2-75.2); PLT 408 X1000 (130-400); RBC 3.84 XMIL (4.2-5.4); RDW 13.9 % (11.5-14.5); WBC 6.25 X1000 (4.8-10.8)
[2018-11-01 07:36] LABS: AGAP 11; BUN 12 mg/dL (8-22); CALCIUM 8.3 mg/dL (8.8-10.2); CHLORIDE 97 mmol/L (98-107); COSMO 274; CREATININE 0.5 mg/dL (0.5-0.9); ESTIMATED GFR > 60; GLUCOSE 109 mg/dL (70-104); POTASSIUM 3.6 mmol/L (3.5-5.1); SODIUM 137 mmol/L (136-145); TCO2 29 mmol/L (25-35)
[2018-11-01] MEDS: LOVENOX SUBQ SCH (08:51)
[2018-11-01] MEDS: PERIDEX MT SCH ×2 (08:51→22:45)
[2018-11-01] MEDS: LR 1,000 ML IV SCH (09:02)
[2018-11-01] MEDS ORDERED: FLU VACCINE IM ONE (09:16)
[2018-11-01] MEDS ORDERED: RELISTOR SUBQ SCH (11:30)
[2018-11-01] MEDS: LIPOSYN 20% 250 ML IV SCH (12:00)
--- NOTE | 2018-11-01 12:33 | PROGRESS NOTE ---
DATE: 11/01/2018 SUBJECTIVE: Patient reported still not having any bowel movements or passing any gas at all. Patient is still complaining of some abdominal pain. She reports that she requires her pain medication even as she is receiving it. OBJECTIVE: Vital Signs: Temperature 98.4 degrees, heart rate 94, respiratory rate 21, blood pressure 127/84, O2 saturation 98% on room air. General Examination: This is a chronically ill- appearing and malnourished, 52-year-old female, lying in bed in no acute distress. HEENT: Head is normocephalic, atraumatic. Mucous membranes moist. Neck: No JVD noted. No carotid bruits. No lymphadenopathy. No thyromegaly. Cardiovascular exam: S1, S2 heard. No murmurs, gallops, or rubs. Regular rate and rhythm. Respiratory exam: Clear bilaterally to auscultation. No work of breathing or using accessory muscles. Abdomen: Soft. Anterior abdomen with dressing in place. Clean and dry. Slight expected postoperative tenderness, but no rebound, no guarding. Bowel sounds decreased, but present. No organomegaly noted. Extremities: No clubbing, cyanosis or edema. Peripheral pulses present in both legs. Neurological exam: Patient is alert and oriented x3. Moves 4 extremities. LABORATORY DATA: White cell count 6.25, hemoglobin 10.6, hematocrit 32.8, platelets 408 with normal BMP. ASSESSMENT AND PLAN: 1. Small bowel obstruction status post exploratory laparotomy with lysis of adhesions on 10/28/2018. The patient reports still having mild pain, but is controlled with pain medication. No bowel movement or flatus thus far yet. Surgery is also following this patient and has recommended mobilization for this patient. 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 I think that this medication could be playing a role in this. Still, no return of bowel function. So, at this point, we will try Relistor subcutaneous 12 units today and 12 units tomorrow, and see if that can help. 2. History of polysubstance abuse noted. 3. Severe protein calorie malnutrition. Patient is on Clinimix and lipids. 4. Hyponatremia, resolved. 5. Deep vein thrombosis prophylaxis. Patient is on sequential compression devices. 6. Disposition: At this point, following the lead from General Surgery, the patient has been admitted here for 15 days. We will continue to monitor. cc: Kalin Sandra MD
[2018-11-01] MEDS: CLINIMIX E 4.25%-5% SOLUTION 1,000 ML IV SCH (12:50)
[2018-11-01] MEDS: NICODERM PATCH TD SCH ×2 (15:54→22:39)
--- NOTE | 2018-11-01 21:05 | GENERAL SURGERY PROGRESS NOTE ---
DATE: 11/01/2018 SUBJECTIVE: She is feeling better. Abdomen is less distended. She is starting to have some bowel sounds. No fevers. OBJECTIVE: Vital Signs: Pulse 99, blood pressure this morning was 110/68, oxygen saturation 98%. General: She is alert. Abdomen: Soft. Dressing is intact. LABS: White count is 6, hematocrit is 32, creatinine is 0.5, potassium is 3.6. ASSESSMENT AND PLAN: This is a 52-year-old female, status post exploratory laparotomy for bowel obstruction. We will remove her nasogastric tube today and continue to optimize her electrolytes, potassium greater than 4, magnesium greater than 2. I have encouraged to be out of bed. Hopefully, this is the beginning of her return of bowel function. cc: Desmond Callaway MD
[2018-11-02] MEDS: ZOFRAN IV PRN ×4 (00:31→17:50)
[2018-11-02] MEDS: CLINIMIX E 4.25%-5% SOLUTION 1,000 ML IV SCH ×2 (02:18→15:55)
[2018-11-02] MEDS: DUONEB (A & A) INH PRN ×4 (03:10→15:41)
[2018-11-02] MEDS: PROTONIX IV SCH ×3 (05:48→14:13)
[2018-11-02] MEDS: SODIUM CHLORIDE 0.9% INJ SCH ×2 (05:48→14:13)
[2018-11-02] MEDS ORDERED: DULCOLAX PR ONE (07:36)
--- NOTE | 2018-11-02 08:50 | GENERAL SURGERY PROGRESS NOTE ---
DATE: 11/02/2018 SUBJECTIVE: She tolerated her NG tube removal, but nothing in the way of flatus. She is tolerating some low volume clear liquids. No fevers. No tachycardia. OBJECTIVE: Vital signs: Blood pressure is 116/78. General: She is alert. Abdomen: Soft. Incisions intact. LABORATORY DATA: I reviewed her labs. ASSESSMENT AND PLAN: This is a 52-year-old female with status post exploratory laparotomy for bowel obstruction with dense intra-abdominal adhesions. She clinically he seems okay but we are awaiting reliable return of bowel function before we advance her diet. She is on peripheral nutrition. I have encouraged her to be out of bed. We will give her a Dulcolax suppository. cc: Desmond Callaway MD
[2018-11-02] MEDS: LR 1,000 ML IV SCH (09:09)
[2018-11-02] MEDS: LOVENOX SUBQ SCH (09:11)
[2018-11-02] MEDS: PERIDEX MT SCH ×2 (09:11→20:23)
[2018-11-02] MEDS: LIPOSYN 20% 250 ML IV SCH (11:41)
--- NOTE | 2018-11-02 11:57 | PROGRESS NOTE ---
DATE: 11/02/2018 SUBJECTIVE: The patient reports not having any bowel movement yet, and not passing even gas at all. OBJECTIVE: Vital Signs: Temperature 97.8 degrees, heart rate 99, respiratory rate 16, and blood pressure 129/85 and O2 saturation 96% on room air. General: This is a chronically ill-looking and cachectic 52-year-old female lying in bed in no acute distress. HEENT: Head is normocephalic and atraumatic. Mucous membranes dry. Neck: No JVD noted. No carotid bruits. No lymphadenopathy. No thyromegaly. Cardiovascular: S1 and S2 heard. No murmurs, gallops, or rubs. Regular rate and rhythm. Respiratory: Clear bilaterally to auscultation. No work of breathing or using accessory muscles. Abdomen: Soft. Slight expected postoperative tenderness, but no rebound. No guarding. Bowel sounds decreased but present. No organomegaly noted. Extremities: No clubbing, cyanosis, or edema. Peripheral pulses present in both legs. Neurological: Patient is alert and oriented x3. Moves 4 extremities. LABORATORY DATA: Reviewed. ASSESSMENT AND PLAN: 1. Small bowel obstruction status post exploratory laparotomy with lysis of adhesions on 10/28/2018. The patient continues to not have any bowel movement or any flatus yet. I think being on a [employer]IMAL [employer]USBANDRY WORKER pump for 5 days after surgery is not helping her to move her bowels some I am going to discontinue the Dilaudid ANIM[employer] HUSBANDRY WORKER pump even though patient is crying, and says she continues to be hurting. I think the history of polysubstance abuse is playing also a role in her pain threshold level. So at this point, I am going to stop this ANIMAL HUSBANDRY WORKER pump of Dilaudid. We will start this patient on Tylenol IV and also Toradol and see how she does. 2. History of polysubstance abuse noted. 3. Severe protein calorie malnutrition. Patient is on Clinimix and lipids. The patient not able to eat now. 4. Deep vein thrombosis prophylaxis. Patient is on SCD's. 5. Disposition. At this point, as we mentioned before, we are going to stop the Dilaudid [employer]IM[employer] HUSBANDRY WORKER pump and see if that helps the patient. cc: Kalin Sandra MD
[2018-11-02] MEDS: OFIRMEV 1000 MG/ISOTONIC SOLN 1,000 MG/100 ML BOTTLE IV SCH ×2 (14:14→20:23)
[2018-11-02] MEDS: TORADOL IV PRN (16:36)
[2018-11-02] MEDS: NICODERM PATCH TD SCH ×2 (20:23→20:27)
[2018-11-03] MEDS: TORADOL IV PRN (01:00)
[2018-11-03] MEDS: SODIUM CHLORIDE 0.9% INJ SCH (01:00)
[2018-11-03] MEDS: PROTONIX IV SCH ×2 (01:00→13:08)
[2018-11-03] MEDS: OFIRMEV 1000 MG/ISOTONIC SOLN 1,000 MG/100 ML BOTTLE IV SCH ×2 (01:00→08:20)
[2018-11-03] MEDS: ZOFRAN IV PRN ×3 (01:53→13:08)
[2018-11-03] MEDS: CLINIMIX E 4.25%-5% SOLUTION 1,000 ML IV SCH (05:28)
[2018-11-03 07:24] LABS: BASO# 0.02 X1000 (0.0-0.2); BASO% 0.4 % (0.0-0.8); EOS# 0.06 X1000 (0.0-0.7); EOS% 1.2 % (0.0-10.0); HEMOGLOBIN 11.2 g/dL (12.0-16.0); IMM GRAN# 0.02 X1000 (0.0-0.04); IMM GRAN% 0.4 % (0.0-0.5); LYMPH# 0.68 X1000 (1.2-3.4); LYMPH% 13.3 % (20.5-51.1); MCH 27.5 PG (27-31); MONO# 0.59 X1000 (0.11-0.59); MONO% 11.6 % (1.7-9.3); NEUT# 3.73 X1000 (1.4-6.5); NEUT% 73.1 % (42.2-75.2); PLT 437 X1000 (130-400); RBC 4.07 XMIL (4.2-5.4); RDW 14.1 % (11.5-14.5)
[2018-11-03 07:42] LABS: AGAP 11; BUN 18 mg/dL (8-22); CALCIUM 9.3 mg/dL (8.8-10.2); CHLORIDE 98 mmol/L (98-107); COSMO 274; CREATININE 0.5 mg/dL (0.5-0.9); ESTIMATED GFR > 60; GLUCOSE 108 mg/dL (70-104); POTASSIUM 4.4 mmol/L (3.5-5.1); SODIUM 136 mmol/L (136-145); TCO2 27 mmol/L (25-35)
[2018-11-03] MEDS ORDERED: NICODERM PATCH TD SCH (07:58)
[2018-11-03] MEDS: LOVENOX SUBQ SCH (08:20)
[2018-11-03] MEDS: PERIDEX MT SCH (08:21)
[2018-11-03] MEDS: LIPOSYN 20% 250 ML IV SCH (11:29)
--- NOTE | 2018-11-03 11:49 | Diag Imaging Result Doc PS360 ---
ABDOMEN FLAT/UPRIGHT - 11/03/2018 INDICATION: follow up for SBO COMPARISON: 10/29/2018 FINDINGS: Stable laparotomy incision skin rian. There are some featureless slightly gas distended loops of bowel similar to prior. No obvious obstruction or free air. There is some stable formed stool throughout the colon and rectum. IMPRESSION: No definite bowel obstruction. Electronically signed by Ron Salomon 11/03/2018 11:47 AM
[2018-11-03 12:07] VITALS: BP 116/84
--- NOTE | 2018-11-03 17:07 | GENERAL SURGERY PROGRESS NOTE ---
DATE: 11/03/2018 SUBJECTIVE: Doing well. Bowels are functioning. No fevers. OBJECTIVE: Vital Signs: Heart rate is occasionally in the low 100s near her baseline. Systolic blood pressure has been okay. General: She is alert. Abdomen: Soft. Incision intact. LABS: Reviewed her labs. White count is normal. Hematocrit is stable. ASSESSMENT AND PLAN: This is a 52-year-old female, status post exploratory laparotomy for bowel obstruction. She is doing better. We will advance her diet and allow her to go home today if she tolerates this. cc: Desmond Callaway MD
--- NOTE | 2018-11-04 13:22 | DISCHARGE SUMMARY ---
ADMISSION DATE: 10/17/2018 DISCHARGE DATE: 11/03/2018 ADMITTING DIAGNOSES: 1. Small bowel obstruction. 2. Mild fluid volume depletion. 3. Polysubstance abuse. 4. Nicotine dependence. DISCHARGE DIAGNOSES: 1. Small bowel obstruction. She had NG tube placed. Imaging found a small bowel obstruction. She had to have exploratory laparotomy with lysis of adhesions on 10/28/2018. 2. Polysubstance abuse. Pain was controlled through TRAINER Dilaudid. 3. Severe protein calorie malnutrition. Clinimix and lipids. The patient is unable to eat. She was advanced on her diet and was finally able to start eating. CONSULTATIONS: Dr. Mario Callaway for the small bowel obstruction who performed lysis of adhesions. SURGICAL PROCEDURES: On 10/28/2018, exploratory laparotomy with lysis of adhesions. HOSPITAL COURSE: On 10/17/2018, Ms. Ruby Berrios presented to [facility]. We saw her by 10/18/2018, dictated a little after midnight, but she presented for complaints of abdominal pain. She has a history of recent partial small bowel obstruction for which she did have to undergo exploratory lap with lysis of adhesions and open appendectomy by Dr. Braun. She has chronic constipation, but she presented with crampy abdominal pain around the umbilicus for at least 2 to 3 days prior to admission, nausea and vomiting, only able to keep some fluids down, but the bowel movements were very poor, without passing flatus. She also had some intermittent fever and body aches with chills. She presents afebrile. Workup revealed abdominopelvic CT without contrast that showed a high grade small bowel obstruction. Dr. Callaway was then consulted and notified. NG tube was placed for decompression. She was transferred from [facility] to [facility] at that time. Despite attempts with NG tube decompression, small bowel obstruction did not improve. There was still no bowel function. On 10/28/2018, Dr. Callaway took her and did exploratory laparotomy with lysis of adhesions. By , she finally started having bowel movements. Apparently with attempts of clearing her bowels, on 10/22/2018, she had 3 bowel movements, she had one more on 10/27/2018 and apparently had another one yesterday prior to discharge and advanced her diet. Vital signs were stable. Labs were stable. She was discharged home. DISCHARGE VITAL SIGNS: Temperature is 98.0, heart rate 115, respiratory rate 16 , blood pressure 116/84, O2 saturation is 98% on room air. DISCHARGE LAB DATA: White blood cells 5000, hemoglobin 11, hematocrit 35, platelet count 437. Sodium is 136, potassium 4.4, BUN is 18, creatinine 0.5, glucose 108, calcium 9.3. PERTINENT IMAGING: On 10/17/2018, abdominopelvic CT showed high grade small bowel obstruction. On 10/18/2018, echocardiogram showed hyperdynamic left ventricle with EF of 75% , normal diastolic function, pulmonary artery pressure of 35 mmHg. No valvular abnormalities. Daily abdominal x- rays did not start showing improvement until about 10/22/2018. By 10/28/2018, findings were not apparent or did not represent a small bowel obstruction on the abdominal x-ray. On 11/03/2018, there was no small bowel obstruction. DISCHARGE MEDICATIONS: 1. Skytop 5 one tab p.o. every 6 hours p.r.n. 2. Movantik 12.5 mg p.o. daily. 3. Protonix 40 mg p.o. daily. DISCHARGE FOLLOWUP: Follow up with Dr. Mario Callaway on 11/11/2018 at 1330. DISCHARGE INSTRUCTIONS: Advance diet as tolerated. Follow up with Dr. Callaway. Alice for pain control. If no bowel movements, return for evaluation. DISCHARGE ACTIVITY: As tolerated. DISCHARGE DISPOSITION: Home. Dictated by NANCY Rick for Kalin Sandra MD Addendum: Patient seen and examined by myself. Agree with NANCY note. It reflects my assessment and plan. Patient is being discharged in stable condition and will be seen by Dr. Callaway in a week. cc: NANCY Rick MD [facility]
== END 2018-11-03 14:35 | disposition home or self-care (01) | DRG 335 ==
LOC: P.ED 16:28 → 4N 22:18 → SUATTDRO 22:18 → 4N 10-28 17:26
PROVIDERS: ATTEND Internal Medicine
CPT/HCPCS: 51702; 71010; 71045; 74000; 74018; 74019; 74020; 74177; 80048; 80053; 80069; 80101; 80104; 80301; 80305; 80307; 80324; 80345; 80346; 80353; 80358; 80361; 80365; 81001; 83605; 83735; 83992; 84100; 84134; 84484; 85025; 85610; 86850; 86900; 86901; 87040; 87088; 93005; 93010; 93306; 94640; 94761; 94762; 94799; 96361; 96365; 96375; 96376; 97162; 97530; 99285; A9270; C9113; G0431; G0434; G0477; G0479; G0480; J0131; J0500; J0690; J1170; J1650; J1885; J2405; J2543; J3480; J7030; J7050; J7120; J7121; Q9967; S0028; S0164